=== PATIENT | male | born 1950 | race Caucasian/White ===

== ENCOUNTER → 2018-10-31 | Day surgery (SDC) | payer OTHER ==
[2018-10-29 09:08] VITALS: BMI 33.9
[~2018-10-31] MED LIST: KETAMINE 10 MG/ML 20 ML VIAL ONE; LACTATED RINGERS 1,000 ML IV SCH; LIDOCAINE 1% 20 ML VIAL (10MG/ML) FOR IV START INTRADERMA ONE; LIDOCAINE 1% INJ 10MG/ML (20 ML MDV) ONE; PROPOFOL 10 MG/ML 20 ML VIAL IV ONE
[2018-10-31 10:35] VITALS: TEMP 98.8
--- NOTE | 2018-10-31 10:57 | P.GSHP ---
History of Present Illness H&P Date: 10/31/18 Chief Complaint: Abdominal pain, screening Patient here today for upper and lower endoscopy. Patient having complaints of epigastric and right upper quadrant abdominal pain. History of previous cholecystectomy. No bowel related complaints. Also having some lower abdominal pain at times. History of previous sigmoid resection for diverticulitis. No history of polyps. Thinks his mother may have had colon cancer. Past Medical History Past Medical History: Asthma, COPD, Hyperlipidemia, Osteoarthritis (OA), Prostate Disorder Additional Past Medical History / Comment(s): kidney stones, colitis, History of Any Multi-Drug Resistant Organisms: None Reported Past Surgical History: Adenoidectomy, Appendectomy, Bowel Resection, Cholecystectomy, Tonsillectomy Additional Past Surgical History / Comment(s): colon resection, rib resection bilateral. COLONOSCOPY, EGD, BILAT CATARACT SX Past Anesthesia/Blood Transfusion Reactions: No Reported Reaction Smoking Status: Former smoker - Past Family History Mother Family Medical History: Cancer Additional Family Medical History / Comment(s): Grandfather had Cardiac issues and colon cancer. Grandmother had cardiac issues. Medications and Allergies Home Medications Medication Instructions Recorded Confirmed Type Allopurinol [Zyloprim] 100 mg PO DAILY 04/29/15 10/29/18 History Atorvastatin [Lipitor] 40 mg PO HS 10/29/18 10/29/18 History FLUoxetine HCL 40 mg PO DAILY 10/29/18 10/29/18 History Finasteride [Proscar] 5 mg PO DAILY 10/29/18 10/29/18 History L.acidoph,Paracasei, B.lactis 1 each PO DAILY 10/29/18 10/29/18 History [Probiotic] traZODone HCL 300 mg PO HS 10/29/18 10/29/18 History Allergies Allergy/AdvReac Type Severity Reaction Status Date / Time Iodinated Contrast- Oral and Allergy Unknown Verified 04/29/15 19:23 IV Dye [Iodinated Contrast Media - IV Dye] morphine AdvReac causes Verified 04/29/15 19:23 vitals to drop Surgical - Exam Vital Signs Temp Pulse Resp BP Pulse Ox 98.8 F 88 18 128/83 94 L 10/31/18 10:33 10/31/18 10:33 10/31/18 10:33 10/31/18 10:33 10/31/18 10:33 Physical exam: General: Well-developed, well-nourished HEENT: Normocephalic, sclerae nonicteric Abdomen: Nontender, nondistended Extremities: No edema Neuro: Alert and oriented Assessment and Plan (1) Colon cancer screening Narrative/Plan: Will proceed with upper and lower endoscopy at this time Current Visit: Yes Status: Acute Code(s): Z12.11 - ENCOUNTER FOR SCREENING FOR MALIGNANT NEOPLASM OF COLON SNOMED Code(s): 820876150
--- NOTE | 2018-10-31 11:15 | P.PCN ---
Date of Procedure: 10/31/18 Procedure(s) Performed: PREOPERATIVE DIAGNOSIS: Epigastric and right upper quadrant abdominal pain, screening POSTOPERATIVE DIAGNOSIS: Mild gastritis, transverse colon polyp, diverticulosis PROCEDURE: 1. EGD with biopsy 2. Colonoscopy with snare polypectomy ANESTHESIA: MAC SURGEON: Primitivo Valentine M.D. SPECIMENS: Antrum, polyp ENDOSCOPIC PROCEDURE: The patient was on the endoscopy table in the left decubitus position. The Olympus gastroscope was inserted into the oropharynx and passed under direct visualization to the region of the third portion of the duodenum. From that point the scope was slowly withdrawn inspecting all surfaces carefully. There were no neoplastic inflammatory or polypoid lesions throughout the duodenum. The pylorus was widely patent. The stomach was carefully inspected. There was mild gastritis present. A biopsy of the antrum took place to rule out H. pylori. Retroflexion revealed a normal hiatus. The esophagus was then carefully examined. There were no neoplastic inflammatory or polypoid lesions throughout the visualized esophagus. The patient was kept on the endoscopy table in the left decubitus position. The Olympus colonoscope was inserted into the anus and passed under direct visualization to the base of the cecum. The appendiceal orifice was visualized. From that point the scope was slowly withdrawn inspecting all surfaces carefully. There were no neoplastic inflammatory or polypoid lesions throughout the cecum and ascending colon. In the transverse colon a small polyp was identified and removed using the snare with cautery technique. The remainder of the transverse descending and rectum appeared normal. The previous colorectal anastomosis was widely patent. There was still mild scattered diverticulum seen scattered throughout the colon. Digital rectal examination was normal. The patient was taken to the recovery room in stable condition per anesthesia guidelines. RECOMMENDATIONS: Await biopsy results. Tentatively plan follow-up colonoscopy 5 years.
[2018-10-31 11:34] VITALS: BP 118/74; PULSE 78; RESP 17
== END ==
LOC: ORWHC2ENDO 09:53
PROVIDERS: ATTEND Surgery
DX: Z12.11 Encounter for screening for malignant neoplasm of colon (principal); K29.50 Unspecified chronic gastritis without bleeding; D12.3 Benign neoplasm of transverse colon; K57.30 Diverticulosis of large intestine without perforation or abscess without bleeding; Z80.0 Family history of malignant neoplasm of digestive organs; Z90.49 Acquired absence of other specified parts of digestive tract; E78.5 Hyperlipidemia, unspecified; M19.90 Unspecified osteoarthritis, unspecified site; M10.9 Gout, unspecified; N42.9 Disorder of prostate, unspecified; Z87.442 Personal history of urinary calculi; Z87.891 Personal history of nicotine dependence; Z79.899 Other long term (current) drug therapy; Z88.5 Allergy status to narcotic agent; Z91.041 Radiographic dye allergy status; J44.9 Chronic obstructive pulmonary disease, unspecified; F39 Unspecified mood [affective] disorder
CPT/HCPCS: 88305; 45385; 43239; J2001; J2704

== ENCOUNTER → 2020-04-11 | Outpatient (CLI) | payer OTHER ==
--- NOTE | 2020-04-11 14:37 | CT ---
EXAMINATION TYPE: CT abdomen pelvis wo/w con DATE OF EXAM: 04/11/2020 COMPARISON: 04/11/2020 HISTORY: Abdominal pain x [address] DLP: 3295.9 mGycm CONTRAST: CT scan of the abdomen and pelvis is performed with Oral Contrast and without and with IV Contrast, p atient injected with 100 mL of Isovue M300. FINDINGS: LUNG BASES-: No visible nodule. No infiltrate. LIVER/GB: The gallbladder is surgically absent. No space occupying hepatic lesion. Biliary tree is of normal caliber. PANCREAS: No inflammation. No distinct mass. SPLEEN: No splenic enlargement. No lesion seen. ADRENALS: No nodule. No thickening. KIDNEYS/BLADDER: No hydronephrosis. No nephrolithiasis. No distinct renal mass. Urinary bladder g rossly unremarkable. BOWEL: Wall thickening involving the descending colon extending to the hepatic flexure may reflect un derlying colitis. The remainder of the colon and small bowel are of normal caliber. The appendix is n ot clearly visualized. GENITAL ORGANS: No gross abnormality. LYMPH NODES: No greater than 1cm abdominal or pelvic lymph nodes are appreciated. AORTA: No significant abnormality. OSSEOUS STRUCTURES: No significant abnormality is seen. OTHER: No significant additional abnormality is seen. IMPRESSION: 1. Suspect colitis of the ascending colon up to the hepatic flexure. Correlate clinically.
== END | disposition home or self-care (01) ==
LOC: RADCTMAIN 12:22
PROVIDERS: ATTEND Nurse Practitioner Acute Care
DX: R10.84 Generalized abdominal pain (principal)
CPT/HCPCS: 82565; 84520; 74178; 36415; Q9967

== ENCOUNTER 2021-02-22 08:25 | Day surgery (SDC) | payer OTHER ==
[2021-02-20 15:04] VITALS: BMI 35.2
[2021-02-22] MEDS ORDERED: LIDOCAINE 1% (10MG/ML) FOR IV START INTRADERMA ONE (09:10)
[2021-02-22] MEDS ORDERED: LACTATED RINGERS 1,000 ML IV ONE (09:10)
[2021-02-22 09:16] VITALS: RESP 16; TEMP 98.4
[2021-02-22] MEDS ORDERED: PROPOFOL 10 MG/ML 20 ML VIAL IV ONE (09:44)
--- NOTE | 2021-02-22 09:54 | P.PCN ---
Date of Procedure: 02/22/21 Procedure(s) Performed: BRIEF HISTORY: Patient is a 70-year-old, pleasant, white male scheduled for an upper endoscopy as a part of evaluation of right upper quadrant abdominal pain for the last 2 years duration. PROCEDURE PERFORMED: Esophagogastroduodenoscopy with biopsy. PREOPERATIVE DIAGNOSIS: Right Upper quadrant abdominal pain of 2 years duration. IV sedation per anesthesia. PROCEDURE: After informed consent was obtained, the patient was brought into the endoscopy unit. IV sedation was administered by Anesthesia under continuous monitoring. Initially the Olympus GIF-140 video endoscope was inserted into the mouth. Esophagus intubated without any difficulty. It was gradually advanced into the stomach and duodenum and carefully examined. The bulb and the second part of the duodenum appeared normal. The scope at this time was withdrawn to the stomach, adequately insufflated with air, and upon careful examination, mucosa of the antrum, had mild gastritis and biopsies were done from this area. The body, cardia and the fundus appeared normal. The scope was then withdrawn into the esophagus. The GE junction was located at 39 cm from the incisors. Small sliding type hiatal hernia noted. The esophagus appeared normal. There were no erosions or ulcerations seen and the patient tolerated the procedure well. IMPRESSION: 1..Mild antral gastritis 2. Small sliding-type well hernia but no evidence of esophagitis RECOMMENDATIONS: The findings of this examination were discussed with the patient as well as his family. He was advised to follow with the biopsy results. He'll continue with Protonix 40 mg daily and he'll be seen in office in 6 weeks
[2021-02-22 10:17] VITALS: BP 124/77; PULSE 71
== END 2021-02-22 10:40 | disposition home or self-care (01) ==
LOC: ORWHC2ENDO 08:25
PROVIDERS: ATTEND Internal Medicine Gastroenterology
DX: K29.50 Unspecified chronic gastritis without bleeding (principal); K44.9 Diaphragmatic hernia without obstruction or gangrene; E78.5 Hyperlipidemia, unspecified; J44.9 Chronic obstructive pulmonary disease, unspecified; G47.33 Obstructive sleep apnea (adult) (pediatric); Z97.2 Presence of dental prosthetic device (complete) (partial); Z87.891 Personal history of nicotine dependence; Z87.442 Personal history of urinary calculi; K52.9 Noninfective gastroenteritis and colitis, unspecified; Z79.899 Other long term (current) drug therapy; Z88.5 Allergy status to narcotic agent; Z91.041 Radiographic dye allergy status
CPT/HCPCS: 88305; 43239; J2704

== ENCOUNTER 2021-04-20 12:00 | Emergency (ER) | payer OTHER ==
--- NOTE | 2021-04-20 12:29 | ED ---
Male Urogenital HPI - General Chief complaint: Urogenital Stated complaint: post cath urine retention Time Seen by Provider: 04/20/21 12:08 Source: patient Mode of arrival: ambulatory Limitations: no limitations - History of Present Illness Initial comments: 70-year-old male presents to emergency department with chief complaint of inability to urinate. Patient reports on March 27 the underwent prostate surgery at the [facility] in [place]. States yesterday he had the Yuen catheter removed and has not been able to urinate since. Reports a bit of dribbling but nothing more. He does report pain and tenderness over the bladder. He denies any back pain chest pain abdominal pain nausea vomiting or diarrhea. States she called his urologist who advised him to come to emergency department for Yuen catheter placement. - Related Data Home Medications Medication Instructions Recorded Confirmed allopurinoL [Zyloprim] 100 mg PO DAILY 04/29/15 04/20/21 FLUoxetine HCL 80 mg PO DAILY 10/29/18 04/20/21 Cetirizine HCl 10 mg PO DAILY 02/20/21 04/20/21 traZODone HCL 150 mg PO HS 04/20/21 04/20/21 Previous Rx's Medication Instructions Recorded Ciprofloxacin HCl [Cipro] 500 mg PO Q12HR #20 tablet 04/20/21 Allergies Allergy/AdvReac Type Severity Reaction Status Date / Time Iodinated Contrast Media Allergy Unknown Verified 04/20/21 14:19 [Iodinated Contrast Media - IV Dye] morphine AdvReac causes Verified 04/20/21 14:19 vitals to drop MRI Contrast Allergy Shaking Uncoded 04/20/21 12:05 Review of Systems ROS Statement: Those systems with pertinent positive or pertinent negative responses have been documented in the HPI. ROS Other: All systems not noted in ROS Statement are negative. Past Medical History Past Medical History: Asthma, Cancer, COPD, Hyperlipidemia, Osteoarthritis (OA), Prostate Disorder, Sleep Apnea/CPAP/BIPAP Additional Past Medical History / Comment(s): Hx kidney stones. Colitis. Cuurent Prostate cancer. 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 History of Any Multi-Drug Resistant Organisms: None Reported Past Surgical History: Adenoidectomy, Appendectomy, Bowel Resection, Cholecystectomy, Tonsillectomy Additional Past Surgical History / Comment(s): Bilateral rib resection, COLONOSCOPY, EGD, BILATERAL CATARACTS. Prostate surgery Past Anesthesia/Blood Transfusion Reactions: No Reported Reaction Past Psychological History: PTSD Smoking Status: Former smoker Past Alcohol Use History: None Reported Past Drug Use History: None Reported - Past Family History Sister(s) Family Medical History: Cancer Additional Family Medical History / Comment(s): Breast cancer. Mother Family Medical History: Cancer Additional Family Medical History / Comment(s): Grandfather had Cardiac issues and colon cancer. Grandmother had cardiac issues. General Exam Limitations: no limitations General appearance: alert, in no apparent distress, obese Head exam: Present: atraumatic, normocephalic, normal inspection Eye exam: Present: normal appearance, PERRL, EOMI Pupils: Present: normal accommodation ENT exam: Present: normal exam, normal oropharynx, mucous membranes moist Neck exam: Present: normal inspection, full ROM. Absent: tenderness Respiratory exam: Present: normal lung sounds bilaterally. Absent: respiratory distress Cardiovascular Exam: Present: regular rate, normal rhythm, normal heart sounds. Absent: systolic murmur GI/Abdominal exam: Present: soft, tenderness (Bladder tenderness). Absent: distended Extremities exam: Present: normal inspection, full ROM. Absent: tenderness Back exam: Present: normal inspection, full ROM. Absent: tenderness, CVA tenderness (R), CVA tenderness (L) Neurological exam: Present: alert, oriented X3 Psychiatric exam: Present: normal affect, normal mood Skin exam: Present: warm, dry, intact, normal color Course Vital Signs 04/20/21 12:05 Temperature 98.1 F Pulse Rate 90 Respiratory 16 Rate Blood Pressure 122/80 O2 Sat by Pulse 96 Oximetry Medical Decision Making - Medical Decision Making 70-year-old male presents to emergency department with chief complaint of inability to urinate. On physical examination, the incision sites are healing well. He does have tenderness over the bladder. Yuen catheter was placed but not able to drain significant amount of urine. Supposedly the patient had not urinated in approximately 24-hour period. Laboratory work shows a normal renal function. He does of urinary tract infection with positive nitrates elevated leukocyte esterase and white blood cells. Blood cells secondary to menstruation of the Yuen catheter. Patient will be started on Cipro Floxin. He was advised about the possible side effects of medication. He was advised to follow with his urologist. Urogram was obtained showed proper placement of the Uyen into the bladder. Strict return parameters were thoroughly discussed with patient is understanding and agreeable. Case discussed with Dr. Aldridge. - Lab Data Result diagrams: 04/20/21 13:50 Lab Results 04/20/21 04/20/21 Range/Units 13:50 13:50 Sodium 139 (137-145) mmol/L Potassium 4.3 (3.5-5.1) mmol/L Chloride 105 (98-107) mmol/L Carbon Dioxide 27 (22-30) mmol/L Anion Gap 7 mmol/L BUN 16 (9-20) mg/dL Creatinine 0.94 (0.66-1.25) mg/dL Est GFR (CKD-EPI)AfAm >90 (>60 ml/min/1.73 sqM) Est GFR (CKD-EPI)NonAf 81 (>60 ml/min/1.73 sqM) Glucose 108 H (74-99) mg/dL Calcium 9.4 (8.4-10.2) mg/dL Urine Color Yellow Urine Appearance Turbid (Clear) Urine pH 6.0 (5.0-8.0) Ur Specific [place] 1.021 (1.001-1.035) Urine Protein 2+ H (Negative) Urine Glucose (UA) Negative (Negative) Urine Ketones Negative (Negative) Urine Blood Large H (Negative) Urine Nitrite Positive (Negative) Urine Bilirubin Negative (Negative) Urine Urobilinogen <2.0 (<2.0) mg/dL Ur Leukocyte Esterase Large H (Negative) Urine RBC 168 H (0-5) /hpf Urine WBC >182 H (0-5) /hpf Urine WBC Clumps Few H (None) /hpf Ur Squamous Epith Cells 2 (0-4) /hpf Urine Bacteria Occasional H (None) /hpf Urine Mucus Many H (None) /hpf Disposition Clinical Impression: Urinary tract infection, Encounter for Yuen catheter replacement Disposition: HOME SELF-CARE Condition: Stable Instructions (If sedation given, give patient instructions): Urinary Tract Infection in Men (ED) Additional Instructions: Follow-up with urologist. Take prescribed medication as directed. Prescriptions: Ciprofloxacin HCl [Cipro] 500 mg PO Q12HR #20 tablet Is patient prescribed a controlled substance at d/c from ED?: No Referrals: [facility],Clinic [Primary Care Provider] - 1-2 days Time of Disposition: 15:15
[2021-04-20 14:21] LABS: Appearance,Urine Turbid (Clear); Bacteria,Urine Occasional /hpf; Bilirubin,Urine Negative (Negative); Blood,Urine Large (Negative); Color,Urine Yellow; Glucose,Urine (UA) Negative (Negative); Ketones,Urine Negative (Negative); Leukocyte Esterase,Urine Large (Negative); Mucus,Urine Many /hpf; Nitrite,Urine Positive (Negative); Protein,Urine 2+ (Negative); RBC,Urine 168 /hpf (0-5); Specific Gravity,Urine 1.021 (1.001-1.035); Squamous Epithelial Cell,Urine 2 /hpf (0-4); Urobilinogen,Urine <2.0 mg/dL (<2.0); WBC,Urine >182 /hpf (0-5)
[2021-04-20 14:25] LABS: African American GFR (CKD) >90 (>60 ml/min/1.73 sqM); Anion Gap 7 mmol/L; Blood Urea Nitrogen 16 mg/dL (9-20); Calcium 9.4 mg/dL (8.4-10.2); Carbon Dioxide 27 mmol/L (22-30); Chloride 105 mmol/L (98-107); Glucose 108 mg/dL (74-99); Non-African American GFR(CKD) 81 (>60 ml/min/1.73 sqM); Potassium 4.3 mmol/L (3.5-5.1); Sodium 139 mmol/L (137-145)
--- NOTE | 2021-04-20 14:29 | XR ---
EXAMINATION TYPE: XR pelvis AP view DATE OF EXAM: 04/20/2021 COMPARISON: None HISTORY: Recent prostatectomy. Placement of a Yuen catheter with low volume return. TECHNIQUE: Single AP pelvis FINDINGS: A cystectomy surgical clips are present. There is air collection over the symphysis pubis. This could be the balloon for the catheter. The catheter itself however is not identified. Case was d iscussed with Dr. Aldridge by Dr. Gandhi by telephone at approximately 1420 hours. Repeat the study wit h late injection of contrast to fill the catheter to detect placement is recommended. IMPRESSION: 1. Catheter not identified. A repeat study with contrast within the Yuen catheter is recommended
--- NOTE | 2021-04-20 15:10 | XR ---
EXAMINATION TYPE: XR pelvis AP view DATE OF EXAM: 04/20/2021 COMPARISON: Earlier exam HISTORY: Check catheter placement TECHNIQUE: AP pelvis FINDINGS: Following injection of contrast by the ER nurse, an image was obtained over the pelvis. Catheter is present within the midline with the tip apparently within urinary bladder. The urinary bl adder is decompressed. There is contrast extending adjacent to the catheter. Extravasation is not chelsi ntified. Postsurgical changes at the anastomosis may be present. IMPRESSION: 1. Urinary bladder appears to be decompressed with Yuen catheter within the urinary bladder. Extrav asation of contrast is not identified.
[2021-04-20 16:07] VITALS: BP 157/66; PULSE 75; RESP 18; TEMP 98.3
== END 2021-04-20 16:07 | disposition home or self-care (01) ==
LOC: EC 12:00
DX: N39.0 Urinary tract infection, site not specified (principal); J44.9 Chronic obstructive pulmonary disease, unspecified; Z46.6 Encounter for fitting and adjustment of urinary device; Z90.79 Acquired absence of other genital organ(s); Z87.891 Personal history of nicotine dependence; Z90.49 Acquired absence of other specified parts of digestive tract; Z91.041 Radiographic dye allergy status; Z88.5 Allergy status to narcotic agent
CPT/HCPCS: 36415; 80048; 81001; 87086; 72170; 99284; 51702; 51798; Q9967

== ENCOUNTER 2022-01-12 11:00 | Day surgery (SDC) | payer OTHER ==
[2022-01-10 14:52] VITALS: BMI 35.1
[~2022-01-12 11:00] MED LIST changes: -KETAMINE 10 MG/ML 20 ML VIAL ONE; -LIDOCAINE 1% 20 ML VIAL (10MG/ML) FOR IV START INTRADERMA ONE; -LIDOCAINE 1% INJ 10MG/ML (20 ML MDV) ONE; -PROPOFOL 10 MG/ML 20 ML VIAL IV ONE
[2022-01-12 12:23] VITALS: TEMP 97.7
[2022-01-12] MEDS ORDERED: PROPOFOL 10 MG/ML 20 ML VIAL IV ONE (12:56)
--- NOTE | 2022-01-12 13:13 | P.PCN ---
Date of Procedure: 01/12/22 Procedure(s) Performed: BRIEF HISTORY: Patient is a 71-year-old pleasant male scheduled for an elective colonoscopy as a part of evaluation of right-sided abdominal pain for the last several months duration. PROCEDURE PERFORMED: Colonoscopy. PREOPERATIVE DIAGNOSIS: Right-sided abdominal pain of several months. IV sedation per Anesthesia. PROCEDURE: After informed consent was obtained, the patient, was brought into the endoscopy unit. IV sedation was administered by Anesthesia under continuous monitoring. Digital rectal examination was normal. Initially the Olympus CF-160 flexible video colonoscope was then inserted in the rectum, gradually advanced into the cecum without any difficulty. Careful examination was performed as the scope was gradually being withdrawn. Ileocecal valve and the appendiceal orifice were visualized and appeared normal. Prep was fair.. There was some thick stool noted in the base of the cecum there was thoroughly irrigated. Mucosa of the cecum, ascending colon, transverse colon, descending colon, sigmoid colon, and rectum appeared normal. Scattered left-sided diverticulosis seen. Retroflexion was performed in the rectum and no lesions were seen. The patient tolerated the procedure well. IMPRESSION: Normal-appearing colon from rectum to cecum with no evidence of colorectal neoplasia . Scattered left sided diverticulosis. RECOMMENDATIONS: Findings of this examination were discussed with the patient as well as his family. He was advised to be on a high-fiber diet and take fiber supplements a regular basis. Recommend repeat screening colonoscopy in 10 years..
[2022-01-12 13:39] VITALS: BP 116/58; PULSE 70; RESP 16
== END 2022-01-12 14:13 | disposition home or self-care (01) ==
LOC: ORWHC2ENDO 11:00
PROVIDERS: ATTEND Internal Medicine Gastroenterology
DX: K57.30 Diverticulosis of large intestine without perforation or abscess without bleeding (principal); J44.9 Chronic obstructive pulmonary disease, unspecified; G47.33 Obstructive sleep apnea (adult) (pediatric); Z85.46 Personal history of malignant neoplasm of prostate; E66.01 Morbid (severe) obesity due to excess calories; Z79.899 Other long term (current) drug therapy; Z91.041 Radiographic dye allergy status; Z88.5 Allergy status to narcotic agent
CPT/HCPCS: 45378; J2704

== ENCOUNTER 2022-04-28 23:47 | Observation (INO) | payer OTHER ==
--- NOTE | 2022-04-28 23:51 | ED ---
Chest Pain HPI - General Stated Complaint: chest pain Time Seen by Provider: 04/28/22 23:51 - Related Data Home Medications Medication Instructions Recorded Confirmed Cetirizine HCl 5 mg PO DAILY 02/20/21 01/12/22 FLUoxetine HCL [PROzac] 40 mg PO DAILY 04/20/21 01/12/22 allopurinoL [Zyloprim] 300 mg PO DAILY 04/20/21 01/12/22 Solifenacin Succinate [Vesicare] 5 mg PO DAILY 01/10/22 01/12/22 traZODone HCL 150 mg PO HS 01/10/22 01/12/22 Allergies Allergy/AdvReac Type Severity Reaction Status Date / Time Iodinated Contrast Media Allergy Unknown Verified 04/28/22 23:53 [Iodinated Contrast Media - IV Dye] morphine AdvReac causes Verified 04/28/22 23:53 vitals to drop MRI Contrast Allergy Shaking Uncoded 04/28/22 23:53 Review of Systems ROS Statement: Those systems with pertinent positive or pertinent negative responses have been documented in the HPI. ROS Other: All systems not noted in ROS Statement are negative. EKG Findings - EKG Comments: EKG Findings:: EKG is sinus 83 MD 176 QRS 81 QTC 402 Past Medical History Past Medical History: Asthma, Cancer, COPD, Hyperlipidemia, Osteoarthritis (OA), Prostate Disorder, Sleep Apnea/CPAP/BIPAP Additional Past Medical History / Comment(s): Hx kidney stones. past hx. thoracic outlet syndrome, Colitis. hx. Prostate cancer. 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 pain @times, overactive bladder History of Any Multi-Drug Resistant Organisms: None Reported Past Surgical History: Adenoidectomy, Appendectomy, Bowel Resection, Cholecystectomy, Prostate Surgery, Tonsillectomy Additional Past Surgical History / Comment(s): Bilateral rib resection, COLONOSCOPY, EGD, BILATERAL CATARACTS. Prostatectomy Past Anesthesia/Blood Transfusion Reactions: No Reported Reaction Smoking Status: Former smoker - Past Family History Sister(s) Family Medical History: Cancer Additional Family Medical History / Comment(s): Breast cancer. Mother Family Medical History: Cancer Additional Family Medical History / Comment(s): Grandfather had Cardiac issues and colon cancer. Grandmother had cardiac issues. Course Vital Signs 04/28/22 23:50 Temperature 100 F H Pulse Rate 86 Respiratory 18 Rate Blood Pressure 128/76 O2 Sat by Pulse 94 L Oximetry Disposition Clinical Impression: Chest pain, Atypical chest pain, Fever, Pneumonia, COPD (chronic obstructive pulmonary disease) Disposition: ADMITTED IP TO THIS HOSP Condition: Good Is patient prescribed a controlled substance at d/c from ED?: No Referrals: [facility],Clinic [Primary Care Provider] - 1-2 days
[2022-04-29 00:05] LABS: Basophils % (A) 0 %; Eosinophils # (A) 0.2 k/uL (0-0.7); Eosinophils % (A) 2 %; HGB 13.2 gm/dL (13.0-17.5); Lymphocytes # (A) 1.1 k/uL (1.0-4.8); Lymphocytes % (A) 12 %; MCH 27.5 pg (25.0-35.0); MCHC 31.5 g/dL (31.0-37.0); MCV 87.3 fL (80.0-100.0); Mean Platelet Volume 6.7; Monocytes # (A) 0.6 k/uL (0-1.0); Monocytes % (A) 6 %; Neutrophils # (A) 6.9 k/uL (1.3-7.7); Neutrophils % (A) 78 %; Platelet Count 210 k/uL (150-450); RBC 4.81 m/uL (4.30-5.90); RDW 13.9 % (11.5-15.5); WBC 8.9 k/uL (3.8-10.6)
[2022-04-29 00:18] LABS: Albumin 4.1 g/dL (3.5-5.0); Calcium 8.9 mg/dL (8.4-10.2); INR 0.9 (<1.2); Partial Thromboplastin Time 24.1 sec (22.0-30.0); Potassium 4.2 mmol/L (3.5-5.1); Prothrombin Time 9.8 sec (9.0-12.0); Total Bilirubin 0.4 mg/dL (0.2-1.3); Total Protein 6.7 g/dL (6.3-8.2)
--- NOTE | 2022-04-29 00:30 | XR ---
EXAMINATION TYPE: XR chest 1V DATE OF EXAM: 04/29/2022 COMPARISON: 04/29/2015 HISTORY: Chest pain TECHNIQUE: FINDINGS: There is elevated left diaphragm and blunting left costophrenic angle. No heart failure. He art size is normal. No pleural effusion. There are chest leads. IMPRESSION: There is pleural diaphragmatic scarring lateral left lung base with elevated diaphragm. N o acute lung disease. No change compared to old exam. Normal heart.
[2022-04-29] MEDS ORDERED: AZITHROMYCIN 500 MG in SODIUM CHLORIDE 0.9% 250 ML IVPB STA (01:04)
[2022-04-29] MEDS ORDERED: ALBUTEROL NEBULIZED 2.5 MG/3 ML INHALATION PRN (01:04)
[2022-04-29] MEDS ORDERED: PNEUMONIA PROTOCOL UTILIZED 1 EACH MISC PO PRN (01:04)
[2022-04-29] MEDS ORDERED: KETOROLAC 15 MG/ML 1 ML VIAL IVP STA (02:07)
[2022-04-29] MEDS ORDERED: ACETAMINOPHEN TAB 325 MG TAB PO PRN (02:08)
[2022-04-29] MEDS ORDERED: ALBUTEROL HFA INHALER INHALATION PRN (05:53)
[2022-04-29] MEDS ORDERED: HYDROmorphone 1 MG/ML 1 ML SYRINGE IVP STA (06:17)
[2022-04-29] MEDS ORDERED: HYDROmorphone 1 MG/ML 1 ML SYRINGE IVP PRN (06:17)
[2022-04-29] MEDS ORDERED: FAMOTIDINE 20 MG/2 ML VIAL IV STA (12:41)
[2022-04-29] MEDS ORDERED: methylPREDNISolone SOD SUCCI 125 MG/2 ML VIAL IV STA (12:41)
[2022-04-29] MEDS ORDERED: diphenhydrAMINE 50 MG/ML 1 ML VIAL IVP STA (12:41)
[2022-04-29] MEDS ORDERED: traZODone HCL 100 MG TAB PO PRN (12:49)
--- NOTE | 2022-04-29 12:54 | P.HPIM ---
History of Present Illness H&P Date: 04/29/22 Chief Complaint: Back pain Patient is a 71-year-old male with a past medical history of kidney stones, colitis, diverticulitis, hypertension who presents to the ED with sharp back pain between his scapula. Patient states that the first episode occurred when he was on his lawnmower yesterday. He states that the pain subsided on its own. He then had a few more episodes similar to this. Patient did not want to come into the hospital however his son convinced him to go so patient came in today. Patient was given IV Dilaudid in the ED which helped to relieve his pain. When I was talking to the patient he believes that the pain is coming back again. In the ED patient's labs are unremarkable. Patient did have a fever. He was found to be positive for COVID-19. Chest x-ray negative for acute process. Review of Systems 10 ROS reviewed and are negative except as noted in HPI Past Medical History Past Medical History: Asthma, Cancer, COPD, Hyperlipidemia, Osteoarthritis (OA), Prostate Disorder, Sleep Apnea/CPAP/BIPAP Additional Past Medical History / Comment(s): Hx kidney stones. past hx. thoracic outlet syndrome, Colitis. hx. Prostate cancer. 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 pain @times, overactive bladder History of Any Multi-Drug Resistant Organisms: None Reported Past Surgical History: Adenoidectomy, Appendectomy, Bowel Resection, Cholecystectomy, Prostate Surgery, Tonsillectomy Additional Past Surgical History / Comment(s): Bilateral rib resection, COLONOSCOPY, EGD, BILATERAL CATARACTS. Prostatectomy Past Anesthesia/Blood Transfusion Reactions: No Reported Reaction Smoking Status: Former smoker - Past Family History Sister(s) Family Medical History: Cancer Additional Family Medical History / Comment(s): Breast cancer. Mother Family Medical History: Cancer Additional Family Medical History / Comment(s): Grandfather had Cardiac issues and colon cancer. Grandmother had cardiac issues. Medications and Allergies Home Medications Medication Instructions Recorded Confirmed Type Cetirizine HCl 5 mg PO DAILY 02/20/21 04/29/22 History FLUoxetine HCL [PROzac] 40 mg PO DAILY 04/20/21 04/29/22 History allopurinoL [Zyloprim] 300 mg PO DAILY 04/20/21 04/29/22 History Solifenacin Succinate [Vesicare] 5 mg PO DAILY 01/10/22 04/29/22 History Carboxymethylcellulose Sodium 2 drop BOTH EYES QID PRN 04/29/22 04/29/22 History [Refresh Tears] traZODone HCL [Desyrel] 100 - 300 mg PO HS PRN 04/29/22 04/29/22 History Allergies Allergy/AdvReac Type Severity Reaction Status Date / Time Iodinated Contrast Media Allergy Unknown Verified 04/29/22 12:08 [Iodinated Contrast Media - IV Dye] morphine AdvReac causes Verified 04/29/22 12:08 vitals to drop MRI Contrast Allergy Shaking Uncoded 04/28/22 23:53 Physical Exam Osteopathic Statement: *. No significant issues noted on an osteopathic structural exam other than those noted in the History and Physical/Consult. Vitals: Vital Signs Temp Pulse Resp BP Pulse Ox 04/29/22 10:00 98.0 F 63 16 120/62 99 04/29/22 06:24 98.9 F 67 18 132/53 94 L 04/29/22 02:40 100 F H 04/29/22 01:13 100.4 F H 73 16 127/66 94 L 04/28/22 23:50 100 F H 86 18 128/76 94 L Intake and Output 04/28/22 04/29/22 04/29/22 22:59 06:59 14:59 Other: Weight 111.13 kg General: [Alert and oriented, well nourished, no acute distress]. Eye: [PERRL, EOMI, normal conjunctiva]. HENT: [Normocephalic, clear tympanic membranes, normal hearing, moist oral mucosa, no scleral icterus, no sinus tenderness]. Neck: [Supple, non-tender, no carotid bruits, no JVD, no lymphadenopathy]. Lungs: [Clear to auscultation and percussion, non-labored respiration]. Heart: [Normal rate, regular rhythm, no murmur, gallop or edema]. Abdomen: [Soft, non-tender, non-distended, normal bowel sounds, no masses]. Musculoskeletal: [Normal range of motion and strength, no tenderness or swelling]. Skin: [Skin is warm, dry and pink, no rashes or lesions]. Neurologic: [Awake, alert, and oriented X3, CN II-XII intact]. Psychiatric: [Cooperative, appropriate mood and affect]. Results CBC & Chem 7: 04/28/22 23:53 04/28/22 23:53 Labs: Abnormal Lab Results - Last 24 Hours (Table) 04/28/22 04/29/22 Range/Units 23:53 01:00 Glucose 106 H (74-99) mg/dL Coronavirus (PCR) Detected A (Not Detectd) Assessment and Plan Assessment: Sharp chest pain between scapula -We'll check CTA chest to rule out aortic dissection and pulmonary embolism -Patient will need ALLERGY prep prior to the scan due to iodine ALLERGY -Tylenol for pain COVID-19, asymptomatic -No need to treat -Patient only describes mild dyspnea with exertion -He is satting well on room air. Chest x-ray negative for any signs of pneumonia -Resume antibiotics for now. If pro-calcitonin negative we'll discontinue antibiotics Gout -Resume allopurinol Anxiety and depression -Resume fluoxetine CODE STATUS:full code DPOA: son DVT prophylaxis: mechanical Discussed with: Patient, ER, rn Anticipated length of stay < than [address]: home A total of 50 minutes was spent on the care of this complex patient more than 50% of the time was spent in counseling and care coordination.
--- NOTE | 2022-04-29 15:30 | CT ---
EXAMINATION TYPE: CT chest angio for PE CT DLP: 691.4 mGycm, Automated exposure control for dose reduction was used. DATE OF EXAM: 04/29/2022 3:09 PM COMPARISON: Chest radiograph from same day. CT abdomen pelvis 04/11/2020. CLINICAL INDICATION:Male, 71 years old with history of sharp chest pain between scapula. COVID positi ve; sharp chest and back pain TECHNIQUE/CONTRAST: CTA scan of the thorax is performed with IV Contrast, patient injected with 88 mL of Isovue 370, pulm onary embolism protocol. MIP images are created and reviewed. FINDINGS: Pulmonary Artery: There is no evidence for a central filling defect within the pulmonary vasculature to suggest acute pulmonary embolism. Limited evaluation of the segmental and subsegmental branches se condary to bolus timing. The pulmonary artery is of normal size. Lungs/Pleura: No evidence of focal consolidation, pleural effusion or pneumothorax. There is an eleva willian left diaphragm. Scattered streaky atelectasis/scarring in the lung base on the left. Right middle lobe 4 mm pulmonary nodule. Airway: Large airways are patent. Heart: The heart is mildly enlarged for size. There is mild coronary artery atherosclerosis. Vasculature: No evidence of aortic aneurysm. Mediastinum: No gross evidence of adenopathy. Musculoskeletal: No acute osseous abnormalities, mild multilevel disc degeneration changes. Soft Tissues: Unremarkable. Lower neck: No significant findings. Upper Abdomen: Diffuse low-attenuation liver parenchyma. Scattered clonic diverticula. Bilateral skylar l cysts. IMPRESSION: 1. No evidence of central pulmonary embolism. Limited evaluation of the segmental and subsegmental br anches. 2. Right middle 4 mm pulmonary nodule. Consider comparison with priors for stability. If there are no priors consider follow-up in one year. 3. Colonic diverticulosis 4. Hepatic steatosis.
[2022-04-29] MEDS: HYDROmorphone 0.5 MG/0.5 ML SYRINGE IM PRN (19:05)
[2022-04-30] MEDS: HYDROmorphone 0.5 MG/0.5 ML SYRINGE IM PRN ×2 (01:24→07:57)
[2022-04-30] MEDS ORDERED: AZITHROMYCIN 500 MG TAB PO SCH (09:00)
[2022-04-30] MEDS ORDERED: allopurinoL 300 MG TAB PO SCH (09:00)
[2022-04-30] MEDS ORDERED: TROSPIUM CHLORIDE 20 MG TABLET PO SCH (09:00)
[2022-04-30] MEDS ORDERED: FLUoxetine HCL 20 MG CAP PO SCH (09:00)
[2022-04-30] MEDS ORDERED: LORATADINE 10 MG TAB PO SCH (09:00)
[2022-04-30] MEDS ORDERED: HYDROmorphone 0.5 MG/0.5 ML SYRINGE IVP PRN (09:50)
--- NOTE | 2022-04-30 10:51 | P.DS ---
Providers Date of admission: 04/29/22 01:04 Expected date of discharge: 04/30/22 Attending physician: Fabiola Bartlett MD Primary care physician: [facility] Hospital Course: Discharge Diagnosis: Sharp chest pain between scapula COVID-19 asymptomatic Gout Anxiety and depression Hospital Course: Patient is a 71-year-old male with a past medical history of kidney stones, colitis, diverticulitis, hypertension who presents to the ED with sharp back pain between his scapula. Patient states that the first episode occurred when he was on his lawnmower yesterday. He states that the pain subsided on its own. He then had a few more episodes similar to this. Patient did not want to come into the hospital however his son convinced him to go so patient came in today. Patient was given IV Dilaudid in the ED which helped to relieve his pain. In the ED patient's labs are unremarkable. Patient did have a fever. He was found to be positive for COVID-19. Chest x-ray negative for acute process. Patient had a CTA chest that was negative for pulmonary embolism or aortic dissection or pneumonia. Patient's pro-calcitonin was within normal limits. Pneumonia ruled out so antibiotics will be discontinued. At the time of discharge patient was showering independently. He only complained of diarrhea. I did tell patient that it could be due to COVID-19. Patient was deemed stable for discharge. Patient is amenable to the plan. Patient seen and examined at bedside.[] Vital signs reviewed and stable. General: [non toxic], [no distress], [appears at stated age] Derm: [warm], [dry] Head: [atraumatic], [normocephalic], [symmetric] Eyes: [EOMI], [no lid lag], [anicteric sclera] Mouth: [no lip lesion], [mucus membranes moist] Cardiovascular: [S1S2 reg], [no murmur], [positive posterior tibial pulse bilateral], Lungs: [CTA bilateral], [no rhonchi, no rales] , [no accessory muscle use] Abdominal: [soft], [ nontender to palpation], [no guarding], [no appreciable organomegaly] Ext: [no gross muscle atrophy], [no edema], [no contractures] Neuro: [ CN II-XI grossly intact], [no focal neuro deficits] Psych: [Alert], [oriented], [appropriate affect] A total of [33] minutes of time were spent preparing this complex discharge summary . Patient Condition at Discharge: Good Plan - Discharge Summary New Discharge Prescriptions: Continue Cetirizine HCl 5 mg PO DAILY allopurinoL [Zyloprim] 300 mg PO DAILY traZODone HCL [Desyrel] 100 - 300 mg PO HS PRN PRN Reason: SLEEP FLUoxetine HCL [PROzac] 40 mg PO DAILY Solifenacin Succinate [Vesicare] 5 mg PO DAILY Carboxymethylcellulose Sodium [Refresh Tears] 2 drop BOTH EYES QID PRN PRN Reason: DRY EYES Discharge Medication List Cetirizine HCl 5 mg PO DAILY 02/20/21 [History] FLUoxetine HCL [PROzac] 40 mg PO DAILY 04/20/21 [History] allopurinoL [Zyloprim] 300 mg PO DAILY 04/20/21 [History] Solifenacin Succinate [Vesicare] 5 mg PO DAILY 01/10/22 [History] Carboxymethylcellulose Sodium [Refresh Tears] 2 drop BOTH EYES QID PRN 04/29/22 [History] traZODone HCL [Desyrel] 100 - 300 mg PO HS PRN 04/29/22 [History] Follow up Appointment(s)/Referral(s): [facility],Clinic [Primary Care Provider] - 1-2 days Discharge Disposition: HOME SELF-CARE
[2022-04-30 11:03] VITALS: BP 122/70; PULSE 72; RESP 20; TEMP 98.6
== END 2022-04-30 12:21 | disposition home or self-care (01) ==
LOC: EC 23:47 → 6NMEDSUR 04-29 01:04 → 4SSUR 04-29 19:06
PROVIDERS: ADMIT Internal Medicine; ATTEND Internal Medicine
DX: R07.89 Other chest pain (principal); U07.1 COVID-19; E78.5 Hyperlipidemia, unspecified; M10.9 Gout, unspecified; F32.A Depression, unspecified; F41.9 Anxiety disorder, unspecified; G47.30 Sleep apnea, unspecified; J44.9 Chronic obstructive pulmonary disease, unspecified; I10 Essential (primary) hypertension; I25.10 Atherosclerotic heart disease of native coronary artery without angina pectoris; K57.30 Diverticulosis of large intestine without perforation or abscess without bleeding; K76.0 Fatty (change of) liver, not elsewhere classified; R91.1 Solitary pulmonary nodule; Z79.899 Other long term (current) drug therapy; Z91.041 Radiographic dye allergy status; Z85.46 Personal history of malignant neoplasm of prostate; Z85.820 Personal history of malignant melanoma of skin; Z90.49 Acquired absence of other specified parts of digestive tract; Z87.891 Personal history of nicotine dependence; Z80.3 Family history of malignant neoplasm of breast; Z80.0 Family history of malignant neoplasm of digestive organs; Z82.49 Family history of ischemic heart disease and other diseases of the circulatory system
CPT/HCPCS: 96366; 96372 ×2; 96365; 96367; 96375; 99285; 36415; 93005; 85379; 80053; 83735; 84484; 85025; 85610; 85730; 84145; 87635; 71045; 71275; G0378 ×2; J1200; J2930; J0456; J0696 ×2; J1170 ×3; J1885; Q9967

== ENCOUNTER 2022-05-30 17:17 | Emergency (ER) | payer OTHER ==
[2022-05-30 18:40] VITALS: BP 120/77; PULSE 97; RESP 16; TEMP 98.5
--- NOTE | 2022-05-30 20:03 | ED ---
Abdominal Pain HPI - General Chief Complaint: Abdominal Pain Stated Complaint: intestinal blockage Time Seen by Provider: 05/30/22 19:13 Source: patient, RN notes reviewed Mode of arrival: ambulatory Limitations: no limitations - History of Present Illness Initial Comments: This is a pleasant 71-year-old male with a history of previous partial colectomy with colostomy and reversal. This was done several years ago by Dr. Jimenes. Patient states for the last 2 weeks he has had problems with bowel movement. He states he has not had a bowel movement in 2 weeks. He is getting some abdominal discomfort. However, he states he has had no vomiting or nausea. Patient describing only some cramping pain in the lower abdomen. No chest pain or shortness of breath. No fever. No problems with urination. Patient has been trying [id number] constipation remedies with no improvement No headache, no fever or chills, no changes in vision or hearing, no sore throat or difficulty with speech, no neck pain, no chest pain or shortness of breath,, no nausea or vomiting, no changes in urination or bowel movements, no numbness or tingling, no extremity pain, no skin rashes or lesions. Past medical, surgical, social, and family history reviewed. MD Complaint: abdominal pain - Related Data Home Medications Medication Instructions Recorded Confirmed Cetirizine HCl 5 mg PO DAILY 02/20/21 04/29/22 FLUoxetine HCL [PROzac] 40 mg PO DAILY 04/20/21 04/29/22 allopurinoL [Zyloprim] 300 mg PO DAILY 04/20/21 04/29/22 Solifenacin Succinate [Vesicare] 5 mg PO DAILY 01/10/22 04/29/22 Carboxymethylcellulose Sodium 2 drop BOTH EYES QID PRN 04/29/22 04/29/22 [Refresh Tears] traZODone HCL [Desyrel] 100 - 300 mg PO HS PRN 04/29/22 04/29/22 Allergies Allergy/AdvReac Type Severity Reaction Status Date / Time Iodinated Contrast Media Allergy Unknown Verified 05/30/22 18:40 [Iodinated Contrast Media - IV Dye] morphine AdvReac causes Verified 05/30/22 18:40 vitals to drop MRI Contrast Allergy Shaking Uncoded 05/30/22 18:40 Review of Systems ROS Statement: Those systems with pertinent positive or pertinent negative responses have been documented in the HPI. ROS Other: All systems not noted in ROS Statement are negative. Past Medical History Past Medical History: Asthma, Cancer, COPD, Hyperlipidemia, Osteoarthritis (OA), Prostate Disorder, Sleep Apnea/CPAP/BIPAP Additional Past Medical History / Comment(s): Hx kidney stones. past hx. thoracic outlet syndrome, Colitis. hx. Prostate cancer. 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 pain @times, overactive bladder History of Any Multi-Drug Resistant Organisms: None Reported Past Surgical History: Adenoidectomy, Appendectomy, Bowel Resection, Cholec ystectomy, Prostate Surgery, Tonsillectomy Additional Past Surgical History / Comment(s): Bilateral rib resection, COLONOSCOPY, EGD, BILATERAL CATARACTS. Prostatectomy Past Anesthesia/Blood Transfusion Reactions: No Reported Reaction Past Psychological History: PTSD Smoking Status: Former smoker Past Alcohol Use History: None Reported Past Drug Use History: None Reported - Past Family History Sister(s) Family Medical History: Cancer Additional Family Medical History / Comment(s): Breast cancer. Mother Family Medical History: Cancer Additional Family Medical History / Comment(s): Grandfather had Cardiac issues and colon cancer. Grandmother had cardiac issues. General Exam - General Exam Comments Initial Comments: Vital signs stable, patient afebrile. Patient does not appear to be ill or toxic. She had outpatient x-rays of his abdomen at [facility] and was sent in for possible bowel obstruction. Limitations: no limitations General appearance: alert, in no apparent distress, obese Head exam: Present: atraumatic, normocephalic, normal inspection Eye exam: Present: normal appearance, PERRL, EOMI. Absent: scleral icterus, conjunctival injection, periorbital swelling ENT exam: Present: normal exam, mucous membranes moist Neck exam: Present: normal inspection. Absent: tenderness, meningismus, lymphadenopathy Respiratory exam: Present: normal lung sounds bilaterally. Absent: respiratory distress, wheezes, rales, rhonchi, stridor Cardiovascular Exam: Present: regular rate, normal rhythm, normal heart sounds. Absent: systolic murmur, diastolic murmur, rubs, gallop, clicks GI/Abdominal exam: Present: soft, normal bowel sounds. Absent: distended, tenderness, guarding, rebound, rigid Extremities exam: Present: normal inspection, full ROM, normal capillary refill. Absent: tenderness, pedal edema, joint swelling, calf tenderness Back exam: Present: normal inspection Neurological exam: Present: alert, oriented X3, CN II-XII intact Psychiatric exam: Present: normal affect, normal mood Skin exam: Present: warm, dry, intact, normal color. Absent: rash Course Vital Signs 05/30/22 18:37 Temperature 98.5 F Pulse Rate 97 Respiratory 16 Rate Blood Pressure 120/77 O2 Sat by Pulse 96 Oximetry - Reevaluation(s) Reevaluation #1: 05/30/22 22:20 Medical record is reviewed Patient unchanged. Abdomen is really benign other than having some minimal palpable distention Patient is informed of results and questions answered Patient in no distress Medical Decision Making - Medical Decision Making Patient computed tomography scan shows no evidence of obstruction. No other acute findings. Previous surgical pattern noted by radiology. I did review this film myself. I believe the patient does have evidence of increased stool Birden. However there is no evidence of fecal impaction. Discussed treatment options with the patient. We will try an enema and then we will have the patient use [id number] MiraLAX for the next 5 days. He is to follow-up with the [facility] medical clinic in detail. Patient was told to return to the ER for any signs or symptoms worsen. Told to return immediately if any other problems arise. All questions answered. Treatment plan discussed. Patient in agreement Every effort has been made to ensure accuracy of this dictation. However, due to the limitations of electronic medical records and dictation devices, errors in charting still occur. Gold Stamper Dr. Celis - Lab Data Result diagrams: 05/30/22 20:48 05/30/22 20:48 Lab Results 05/30/22 05/30/22 05/30/22 Range/Units 20:48 20:48 20:48 WBC 9.5 (3.8-10.6) k/uL RBC 5.36 (4.30-5.90) m/uL Hgb 14.8 (13.0-17.5) gm/dL Hct 47.0 (39.0-53.0) % MCV 87.7 (80.0-100.0) fL MCH 27.5 (25.0-35.0) pg MCHC 31.4 (31.0-37.0) g/dL RDW 14.4 (11.5-15.5) % Plt Count 239 (150-450) k/uL MPV 6.9 Neutrophils % 64 % Lymphocytes % 26 % Monocytes % 5 % Eosinophils % 2 % Basophils % 1 % Neutrophils # 6.1 (1.3-7.7) k/uL Lymphocytes # 2.5 (1.0-4.8) k/uL Monocytes # 0.5 (0-1.0) k/uL Eosinophils # 0.2 (0-0.7) k/uL Basophils # 0.1 (0-0.2) k/uL PT 10.6 (9.0-12.0) sec INR 1.0 (<1.2) Sodium 137 (137-145) mmol/L Potassium 4.2 (3.5-5.1) mmol/L Chloride 101 (98-107) mmol/L Carbon Dioxide 22 (22-30) mmol/L Anion Gap 14 mmol/L BUN 19 (9-20) mg/dL Creatinine 1.16 (0.66-1.25) mg/dL Est GFR (CKD-EPI)AfAm 72 (>60 ml/min/1.73 sqM) Est GFR (CKD-EPI)NonAf 63 (>60 ml/min/1.73 sqM) Glucose 111 H (74-99) mg/dL Plasma Lactic Acid Jorge Alberto (0.7-2.0) mmol/L Calcium 9.5 (8.4-10.2) mg/dL Total Bilirubin 0.4 (0.2-1.3) mg/dL AST 21 (17-59) U/L ALT 18 (4-49) U/L Alkaline Phosphatase 104 (38-126) U/L Troponin I (0.000-0.034) ng/mL Total Protein 7.5 (6.3-8.2) g/dL Albumin 4.7 (3.5-5.0) g/dL Lipase 100 (23-300) U/L 05/30/22 05/30/22 Range/Units 20:48 20:48 WBC (3.8-10.6) k/uL RBC (4.30-5.90) m/uL Hgb (13.0-17.5) gm/dL Hct (39.0-53.0) % MCV (80.0-100.0) fL MCH (25.0-35.0) pg MCHC (31.0-37.0) g/dL RDW (11.5-15.5) % Plt Count (150-450) k/uL MPV Neutrophils % % Lymphocytes % % Monocytes % % Eosinophils % % Basophils % % Neutrophils # (1.3-7.7) k/uL Lymphocytes # (1.0-4.8) k/uL Monocytes # (0-1.0) k/uL Eosinophils # (0-0.7) k/uL Basophils # (0-0.2) k/uL PT (9.0-12.0) sec INR (<1.2) Sodium (137-145) mmol/L Potassium (3.5-5.1) mmol/L Chloride (98-107) mmol/L Carbon Dioxide (22-30) mmol/L Anion Gap mmol/L BUN (9-20) mg/dL Creatinine (0.66-1.25) mg/dL Est GFR (CKD-EPI)AfAm (>60 ml/min/1.73 sqM) Est GFR (CKD-EPI)NonAf (>60 ml/min/1.73 sqM) Glucose (74-99) mg/dL Plasma Lactic Acid Jorge Alberto 1.4 (0.7-2.0) mmol/L Calcium (8.4-10.2) mg/dL Total Bilirubin (0.2-1.3) mg/dL AST (17-59) U/L ALT (4-49) U/L Alkaline Phosphatase (38-126) U/L Troponin I <0.012 (0.000-0.034) ng/mL Total Protein (6.3-8.2) g/dL Albumin (3.5-5.0) g/dL Lipase (23-300) U/L - EKG Data EKG Comments: EKG done at 2042 and reviewed with ED attending physician reveals a sinus rhythm with a rate of 81. Nonspecific T wave abnormality. Normal axis. Normal QRS morphology otherwise. No evidence of acute changes. Disposition Clinical Impression: Constipation, Abdominal cramping Disposition: HOME SELF-CARE Condition: Good Instructions (If sedation given, give patient instructions): Constipation (ED) Additional Instructions: Take MiraLAX once a day for the next 5 days and follow-up with the [place] medical clinic. Also add in a daily fiber supplement such as Metamucil, Benefiber, or FiberCon. Follow-up with your regular physician as directed. Return to the ER immediately if any symptoms worsen, new symptoms arise, or any other problems develop. Is patient prescribed a controlled substance at d/c from ED?: No Referrals: [facility],Clinic [Primary Care Provider] - 1-2 days Time of Disposition: 22:23
--- NOTE | 2022-05-30 20:20 | XR ---
EXAMINATION TYPE: XR chest 2V DATE OF EXAM: 05/30/2022 COMPARISON: 04/29/2022 HISTORY: Abdominal pain TECHNIQUE: 2 views FINDINGS: There is blunting of costophrenic angle. Heart and mediastinum are normal. Lungs are clear of infiltrate. Right lung is clear. IMPRESSION: There is some pleural diaphragmatic scarring at the lateral lung base and slight elevated left diaphragm. No change compared to old exam. No acute lung disease.
--- NOTE | 2022-05-30 20:22 | XR ---
EXAMINATION TYPE: XR KUB DATE OF EXAM: 05/30/2022 COMPARISON: NONE HISTORY: Abdominal pain TECHNIQUE: 2 view FINDINGS: The bowel gas pattern is normal. No significant intestinal obstruction or pneumoperitoneum. Fecal pattern is normal. There are clips from cholecystectomy. No sign of a mass. No calcifications seen over the kidneys. IMPRESSION: Nonacute abdomen.
--- NOTE | 2022-05-30 20:44 | CT ---
EXAMINATION TYPE: CT abdomen pelvis wo con DATE OF EXAM: 05/30/2022 COMPARISON: None HISTORY: abdominal pain and constipation. CT DLP: 1247.4. mGycm Automated exposure control for dose reduction was used. Images obtained of the diaphragm to the floor the pelvis with no contrast. Lung bases are clear of consolidation. No pleural effusion. Heart size is normal. No pericardial effu estrellita. Liver spleen and stomach appear intact. There are clips from cholecystectomy. Bile ducts are not dila willian. No pancreatic mass. There is no adrenal mass. Kidneys show normal size and contour. No hydronephrosis. Ureters are not di lated. No retroperitoneal adenopathy. Bladder distends smoothly. No internal hernia. No free fluid in the pelvis. No pelvic mass. There is previous sigmoid colon surgery. Appendix not seen. No significant appendix. There is no mesenteric edema. No ascites or free air. No sign of a bowel obstruction. The lumbar vertebrae have normal alignment. No compression fracture. Pos terior elements are intact. Bony pelvis is intact. The hip joints are intact. There is 2 cm cortical cyst lower pole right kidney. IMPRESSION: Negative CT scan abdomen and pelvis.
[2022-05-30 21:08] LABS: Basophils # (A) 0.1 k/uL (0-0.2); Basophils % (A) 1 %; Eosinophils # (A) 0.2 k/uL (0-0.7); Eosinophils % (A) 2 %; HGB 14.8 gm/dL (13.0-17.5); Lymphocytes # (A) 2.5 k/uL (1.0-4.8); Lymphocytes % (A) 26 %; MCH 27.5 pg (25.0-35.0); MCHC 31.4 g/dL (31.0-37.0); MCV 87.7 fL (80.0-100.0); Mean Platelet Volume 6.9; Monocytes # (A) 0.5 k/uL (0-1.0); Monocytes % (A) 5 %; Neutrophils # (A) 6.1 k/uL (1.3-7.7); Neutrophils % (A) 64 %; Platelet Count 239 k/uL (150-450); RBC 5.36 m/uL (4.30-5.90); RDW 14.4 % (11.5-15.5); WBC 9.5 k/uL (3.8-10.6)
[2022-05-30 21:16] LABS: Prothrombin Time 10.6 sec (9.0-12.0)
[2022-05-30 21:18] LABS: Albumin 4.7 g/dL (3.5-5.0); Calcium 9.5 mg/dL (8.4-10.2); Potassium 4.2 mmol/L (3.5-5.1); Total Bilirubin 0.4 mg/dL (0.2-1.3); Total Protein 7.5 g/dL (6.3-8.2)
[2022-05-31] MEDS ORDERED: NA PHOS,M-B/NA PHOS,DI-BA 133 ML ENEMA RECTAL ONE
== END 2022-05-31 00:59 | disposition home or self-care (01) ==
LOC: EC 17:17
DX: K59.00 Constipation, unspecified (principal); Z91.041 Radiographic dye allergy status; Z88.6 Allergy status to analgesic agent; J44.9 Chronic obstructive pulmonary disease, unspecified; E78.5 Hyperlipidemia, unspecified; Z87.891 Personal history of nicotine dependence
CPT/HCPCS: 36415; 71046; 74018; 74176; 80053; 83605; 83690; 84484; 85025; 85610; 93005; 99284

== ENCOUNTER 2023-07-31 17:38 | Emergency (ER) | payer OTHER ==
[2023-07-31] MEDS ORDERED: methylPREDNISolone SOD SUCCI 125 MG/2 ML VIAL IV STA (18:06)
[2023-07-31] MEDS ORDERED: KETOROLAC 15 MG/ML 1 ML VIAL IVP STA (18:06)
[2023-07-31] MEDS ORDERED: diphenhydrAMINE 50 MG/ML 1 ML VIAL IVP STA (18:06)
[2023-07-31 18:33] LABS: Basophils % (A) 0 %; Eosinophils # (A) 0.2 k/uL (0-0.7); Eosinophils % (A) 3 %; HCT 42.5 % (39.0-53.0); HGB 14.2 gm/dL (13.0-17.5); Lymphocytes # (A) 2.2 k/uL (1.0-4.8); Lymphocytes % (A) 25 %; MCHC 33.5 g/dL (31.0-37.0); MCV 86.7 fL (80.0-100.0); Mean Platelet Volume 7.1; Monocytes # (A) 0.5 k/uL (0-1.0); Monocytes % (A) 5 %; Neutrophils # (A) 5.7 k/uL (1.3-7.7); Neutrophils % (A) 65 %; Platelet Count 269 k/uL (150-450); RDW 14.2 % (11.5-15.5); WBC 8.7 k/uL (3.8-10.6)
[2023-07-31 18:55] LABS: INR 0.9 (<1.2); Partial Thromboplastin Time 25.7 sec (22.0-30.0); Prothrombin Time 10.3 sec (10.0-12.5)
[2023-07-31 19:40] LABS: ALT 26 U/L (4-49); AST 24 U/L (17-59); African American GFR (CKD) 88 (>60 ml/min/1.73 sqM); Alkaline Phosphatase 74 U/L (38-126); Anion Gap 10 mmol/L; Blood Urea Nitrogen 18 mg/dL (9-20); Calcium 9.3 mg/dL (8.4-10.2); Carbon Dioxide 24 mmol/L (22-30); Chloride 104 mmol/L (98-107); Glucose 104 mg/dL (74-99); Non-African American GFR(CKD) 76 (>60 ml/min/1.73 sqM); Potassium 4.7 mmol/L (3.5-5.1); Sodium 138 mmol/L (137-145); Total Bilirubin 0.4 mg/dL (0.2-1.3); Total Protein 6.9 g/dL (6.3-8.2)
--- NOTE | 2023-07-31 19:54 | ED ---
General Adult HPI - General Chief complaint: Back Pain/Injury Stated complaint: SOB, Upper back pain Time Seen by Provider: 07/31/23 17:57 Source: patient, EMS Mode of arrival: EMS Limitations: no limitations - History of Present Illness Initial comments: This 72-year-old male presents with complaint of pain to his bilateral upper thoracic region. He states that it was severe in nature rated at 10 of 10. It lasted for several hours and is much improved now rated at 410. He describes it as a sharp pain. It occurred when he was doing some work on his tractor. He states that he did not have any injury. This was not significantly exertional work. He denies any anterior chest pain. He denies any shortness of breath. There is no leg pain or swelling. He denies any history of any aortic problems in the past. He apparently had something somewhat similar over the past year and was diagnosed with covid. At this time, he is denying any cough, fevers, chills or other covid symptomatology. He has not taken anything for pain as of yet. No other complaints or modifying factors. - Related Data Home Medications Medication Instructions Recorded Confirmed Cetirizine HCl 5 mg PO DAILY 02/20/21 04/29/22 FLUoxetine HCL [PROzac] 40 mg PO DAILY 04/20/21 04/29/22 allopurinoL [Zyloprim] 300 mg PO DAILY 04/20/21 04/29/22 Solifenacin Succinate [Vesicare] 5 mg PO DAILY 01/10/22 04/29/22 Carboxymethylcellulose Sodium 2 drop BOTH EYES QID PRN 04/29/22 04/29/22 [Refresh Tears] traZODone HCL [Desyrel] 100 - 300 mg PO HS PRN 04/29/22 04/29/22 Previous Rx's Medication Instructions Recorded Cyclobenzaprine [Flexeril] 10 mg PO TID PRN #20 tab 07/31/23 traMADol HCl [Ultram] 50 - 100 mg PO Q6H PRN #15 tab 07/31/23 Allergies Allergy/AdvReac Type Severity Reaction Status Date / Time Iodinated Contrast Media Allergy Unknown Verified 05/30/22 18:40 [Iodinated Contrast Media - IV Dye] morphine AdvReac causes Verified 05/30/22 18:40 vitals to drop MRI Contrast Allergy Shaking Uncoded 05/30/22 18:40 Review of Systems ROS Statement: Those systems with pertinent positive or pertinent negative responses have been documented in the HPI. ROS Other: All systems not noted in ROS Statement are negative. Past Medical History Past Medical History: Asthma, Cancer, COPD, Hyperlipidemia, Osteoarthritis (OA), Prostate Disorder, Sleep Apnea/CPAP/BIPAP Additional Past Medical History / Comment(s): Hx kidney stones. past hx. thoracic outlet syndrome, Colitis. hx. Prostate cancer. 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 pain @times, overactive bladder History of Any Multi-Drug Resistant Organisms: None Reported Past Surgical History: Adenoidectomy, Appendectomy, Bowel Resection, Cholecystectomy, Prostate Surgery, Tonsillectomy Additional Past Surgical History / Comment(s): Bilateral rib resection, COLONOSCOPY, EGD, BILATERAL CATARACTS. Prostatectomy Past Anesthesia/Blood Transfusion Reactions: No Reported Reaction Past Psychological History: PTSD Smoking Status: Former smoker Past Alcohol Use History: None Reported Past Drug Use History: None Reported - Past Family History Sister(s) Family Medical History: Cancer Additional Family Medical History / Comment(s): Breast cancer. Mother Family Medical History: Cancer Additional Family Medical History / Comment(s): Grandfather had Cardiac issues and colon cancer. Grandmother had cardiac issues. General Exam - General Exam Comments Initial Comments: GENERAL: The patient is well nourished and well hydrated. VITAL SIGNS: Heart rate, blood pressure, respiratory rate reviewed as recorded in nurse's notes. EYES: Pupils are round and reactive. Extraocular movements are intact. No conjunctival / lid redness or swelling. ENT: No external evidence of injury, swelling, or ecchymosis. Airway is patent. Throat is clear. NECK: Nontender. No swelling or evidence of injury. No subcutaneous emphysema. Trachea is midline. No thyroid mass. HEART: Regular rate and rhythm. Good peripheral pulses. LUNGS/CHEST: Breath sounds clear and equal bilaterally. No rales, rhonchi, or wheezes. No ecchymosis, subcutaneous emphysema, or tenderness. ABDOMEN: Abdomen soft without tenderness. No palpable masses or organomegaly. No peritoneal signs. No abdominal wall swelling or ecchymosis. EXTREMITIES: No extremity tenderness. Normal muscle tone and function. No thoracolumbar tenderness. NEUROLOGIC: Sensation is grossly intact. Cranial nerve exam reveals face is symmetrical, tongue is midline, speech is clear. SKIN: No abrasions or ecchymosis is noted. No induration or masses noted. PSYCHIATRIC: Alert and oriented. Appropriate behavior and judgment. Limitations: no limitations Course Vital Signs 07/31/23 17:40 Pulse Rate 94 Respiratory 18 Rate Blood Pressure 133/87 O2 Sat by Pulse 96 Oximetry Medical Decision Making - Medical Decision Making The patient was seen and examined. All diagnostics are reviewed. EKG shows a normal sinus rhythm at a rate of 90. There is no acute ST or T wave changes noted per my interpretation. Intervals are normal. An IV is established and he does receive Toradol intravenously. He has iodine listed as an ALLERGY but upon further questioning he states that he is ALLERGIC to gadolinium. He never theless is still pretreated with Solu-Medrol and Benadryl intravenously. CTA of the chest is ordered to rule out aortic dissection. The laboratory did not show any acute significant abnormalities. The CT angiogram of the chest also does not show any acute significant abnormalities per my interpretation and radiologist interpretation. The patient states that he had to lift his arms up for the computed tomography scan and this causes rotator cuff to hurt. He is given 0.5 mg of Dilaudid intravenously with relief of pain. The CT angiogram of the chest does show some slight bulging thoracic discs. His symptomatology potentially could be related to this. It is felt as though he is stable for discharge home. He is prescribed Ultram as well as Flexeril. Does follow up with primary care recommended. If his symptoms persist he may require follow-up with a back surgeon as well. Was pt. sent in by a medical professional or institution (, PA, CONCRETE PAVING MACHINE OPERATOR, urgent care, hospital, or fpc...) When possible be specific @ -No Did you speak to anyone other than the patient for history (EMS, parent, family, police, friend...)? What history was obtained from this source @ -No Did you review nursing and triage notes (agree or disagree)? Why? @ -I reviewed and agree with nursing and triage notes Were old charts reviewed (outside hosp., previous admission, EMS record, old EKG, old radiological studies, urgent care reports/EKG's, fpc records)? Report findings @ -Old records were reviewed and additional past medical history is obtained. Differential Diagnosis (chest pain, altered mental status, abdominal pain women, abdominal pain men, vaginal bleeding, weakness, fever, dyspnea, syncope, headache, dizziness, GI bleed, back pain, seizure, CVA, palpatations, mental health, musculoskeletal)? @ -Thoracic strain, bulging thoracic discs EKG interpreted by me (3pts min.). @ -None X-rays interpreted by me (1pt min.). @ -None done CT interpreted by me (1pt min.). @ -As above U/S interpreted by me (1pt. min.). @ -None done What testing was considered but not performed or refused? (CT, X-rays, U/S, labs)? Why? @ -None What meds were considered but not given or refused? Why? @ -None Did you discuss the management of the patient with other professionals (professionals i.e. , PA, CONCRETE PAVING MACHINE OPERATOR, lab, RT, psych nurse, social insurance specialist, extrusion engineer, teacher, telecommunications officer, block and case maker)? Give summary @ -No Was smoking cessation discussed for >3mins.? @ -No Was critical care preformed (if so, how long)? @ -No Were there social determinants of health that impacted care today? How? (Homelessness, low income, unemployed, alcoholism, drug addiction, transportation, low edu. Level, literacy, decrease access to med. care, senior living, rehab)? @ -No Was there de-escalation of care discussed even if they declined (Discuss DNR or withdrawal of care, Hospice)? DNR status @ -No What co-morbidities impacted this encounter? (DM, HTN, Smoking, COPD, CAD, Cancer, CVA, ARF, Chemo, Hep., AIDS, mental health diagnosis, sleep apnea, morbid obesity)? @ -History of covid Was patient admitted / discharged? Hospital course, mention meds given and route, prescriptions, significant lab abnormalities, going to OR and other pertinent info. @ -Patient was discharged Undiagnosed new problem with uncertain prognosis? @ -No Drug Therapy requiring intensive monitoring for toxicity (Heparin, Nitro, Insulin, Cardizem)? @ -No Were any procedures done? @ -No Diagnosis/symptom? @ -Thoracic pain, bulging thoracic disc, thoracic strain Acute, or Chronic, or Acute on Chronic? @ -Acute Uncomplicated (without systemic symptoms) or Complicated (systemic symptoms)? @ -Uncomplicated Side effects of treatment? @ -No Exacerbation, Progression, or Severe Exacerbation? @ -No Poses a threat to life or bodily function? How? (Chest pain, USA, ID, pneumonia, PE, COPD, DKA, ARF, appy, cholecystitis, CVA, Diverticulitis, Homicidal, Suicidal, threat to staff... and all critical care pts) @ -No - Lab Data Result diagrams: 07/31/23 18:19 07/31/23 19:22 Lab Results 07/31/23 07/31/23 07/31/23 Range/Units 18:19 18:19 18:19 WBC 8.7 (3.8-10.6) k/uL RBC 4.90 (4.30-5.90) m/uL Hgb 14.2 (13.0-17.5) gm/dL Hct 42.5 (39.0-53.0) % MCV 86.7 (80.0-100.0) fL MCH 29.0 (25.0-35.0) pg MCHC 33.5 (31.0-37.0) g/dL RDW 14.2 (11.5-15.5) % Plt Count 269 (150-450) k/uL MPV 7.1 Neutrophils % 65 % Lymphocytes % 25 % Monocytes % 5 % Eosinophils % 3 % Basophils % 0 % Neutrophils # 5.7 (1.3-7.7) k/uL Lymphocytes # 2.2 (1.0-4.8) k/uL Monocytes # 0.5 (0-1.0) k/uL Eosinophils # 0.2 (0-0.7) k/uL Basophils # 0.0 (0-0.2) k/uL PT 10.3 (10.0-12.5) sec INR 0.9 (<1.2) APTT 25.7 (22.0-30.0) sec Sodium (137-145) mmol/L Potassium (3.5-5.1) mmol/L Chloride (98-107) mmol/L Carbon Dioxide (22-30) mmol/L Anion Gap mmol/L BUN (9-20) mg/dL Creatinine (0.66-1.25) mg/dL Est GFR (CKD-EPI)AfAm (>60 ml/min/1.73 sqM) Est GFR (CKD-EPI)NonAf (>60 ml/min/1.73 sqM) Glucose (74-99) mg/dL Calcium (8.4-10.2) mg/dL Total Bilirubin (0.2-1.3) mg/dL AST (17-59) U/L ALT (4-49) U/L Alkaline Phosphatase (38-126) U/L Troponin I <0.012 (0.000-0.034) ng/mL Total Protein (6.3-8.2) g/dL Albumin (3.5-5.0) g/dL 07/31/23 Range/Units 19:22 WBC (3.8-10.6) k/uL RBC (4.30-5.90) m/uL Hgb (13.0-17.5) gm/dL Hct (39.0-53.0) % MCV (80.0-100.0) fL MCH (25.0-35.0) pg MCHC (31.0-37.0) g/dL RDW (11.5-15.5) % Plt Count (150-450) k/uL MPV Neutrophils % % Lymphocytes % % Monocytes % % Eosinophils % % Basophils % % Neutrophils # (1.3-7.7) k/uL Lymphocytes # (1.0-4.8) k/uL Monocytes # (0-1.0) k/uL Eosinophils # (0-0.7) k/uL Basophils # (0-0.2) k/uL PT (10.0-12.5) sec INR (<1.2) APTT (22.0-30.0) sec Sodium 138 (137-145) mmol/L Potassium 4.7 (3.5-5.1) mmol/L Chloride 104 (98-107) mmol/L Carbon Dioxide 24 (22-30) mmol/L Anion Gap 10 mmol/L BUN 18 (9-20) mg/dL Creatinine 0.98 (0.66-1.25) mg/dL Est GFR (CKD-EPI)AfAm 88 (>60 ml/min/1.73 sqM) Est GFR (CKD-EPI)NonAf 76 (>60 ml/min/1.73 sqM) Glucose 104 H (74-99) mg/dL Calcium 9.3 (8.4-10.2) mg/dL Total Bilirubin 0.4 (0.2-1.3) mg/dL AST 24 (17-59) U/L ALT 26 (4-49) U/L Alkaline Phosphatase 74 (38-126) U/L Troponin I (0.000-0.034) ng/mL Total Protein 6.9 (6.3-8.2) g/dL Albumin 4.0 (3.5-5.0) g/dL Disposition Clinical Impression: Thoracic back pain, Bulging of thoracic intervertebral disc, Thoracic myofascial strain Disposition: HOME SELF-CARE Condition: Good Instructions (If sedation given, give patient instructions): Back Pain (ED) Prescriptions: Cyclobenzaprine [Flexeril] 10 mg PO TID PRN #20 tab PRN Reason: Pain traMADol HCl [Ultram] 50 - 100 mg PO Q6H PRN #15 tab PRN Reason: Pain Is patient prescribed a controlled substance at d/c from ED?: Yes When asked, does pt state using other controlled substances?: No If prescribed controlled substance>3 days was MAPS reviewed?: Prescribed <3 Days Referrals: [facility],Clinic [Primary Care Provider] - 1-2 days Time of Disposition: 20:56
--- NOTE | 2023-07-31 20:32 | CT ---
EXAMINATION TYPE: CT angio chest CT DLP: 1268.9 mGycm, Automated exposure control for dose reduction was used. DATE OF EXAM: 07/31/2023 8:20 PM COMPARISON: 04/29/2022 CLINICAL INDICATION:Male, 72 years old with history of aortic dissection suspected; Chest pain, suspe cted aorta dissection TECHNIQUE/CONTRAST: CTA scan of the thorax is performed without and with IV Contrast, patient injected with 100 CC mL of Isovue 370, MIP images are created and reviewed these are created on a separate workstation.. FINDINGS: Pulmonary Artery: There is no evidence for a filling defect within the pulmonary vasculature to sugge st acute pulmonary embolism. The pulmonary artery is of normal size. Lungs/Pleura: No evidence of focal consolidation, pleural effusion or pneumothorax. Scattered sub-4 m m pulmonary nodules. Airway: Large airways are patent. Scattered atherosclerosis of the arterial coronary vasculature Heart: Heart is within normal limits for size. Vasculature: No evidence for intramural hematoma on noncontrast imaging. No evidence of intimal flap to suggest dissection. No aneurysm identified. Scattered atherosclerotic disease. Mediastinum: No gross evidence of adenopathy. Musculoskeletal: Mild degenerative disc disease changes are present throughout the thoracolumbar spin e. Soft Tissues: Unremarkable. Lower neck: No significant findings. Upper Abdomen: The gallbladder surgically absent. Scattered colonic diverticula. IMPRESSION: No evidence for aortic dissection, pulmonary embolism or acute thoracic process.
[2023-07-31] MEDS ORDERED: HYDROmorphone 0.5 MG/0.5 ML SYRINGE IVP STA (20:42)
[2023-07-31 21:21] VITALS: BP 148/80; PULSE 77; RESP 16
== END 2023-07-31 21:39 | disposition home or self-care (01) ==
LOC: EC 17:38
DX: S29.012A Strain of muscle and tendon of back wall of thorax, initial encounter (principal); M51.34 Other intervertebral disc degeneration, thoracic region; J44.89 Other specified chronic obstructive pulmonary disease; G47.30 Sleep apnea, unspecified; Z87.891 Personal history of nicotine dependence; Z88.5 Allergy status to narcotic agent; Z88.8 Allergy status to other drugs, medicaments and biological substances; X58.XXXA Exposure to other specified factors, initial encounter
CPT/HCPCS: 36415; 93005; 80053; 84484; 85025; 85610; 85730; 71275; 99285; 96374; 96375 ×3; J1200; J2930; J1885; J1170; Q9967

== ENCOUNTER 2024-03-23 11:36 | Observation (INO) | payer OTHER ==
--- NOTE | 2024-03-23 12:22 | ED ---
General Adult HPI - General Chief complaint: Syncope Stated complaint: syncope Time Seen by Provider: 03/23/24 12:01 Source: patient, RN notes reviewed Mode of arrival: ambulatory Limitations: no limitations - History of Present Illness Initial comments: Patient is a 73-year-old male present to the emergency department with syncopal episode. Episode occurred this morning. No injury. Patient had a second episode of near syncope following that. Patient states he is feeling normal at this time. Patient has been having a significant amount of diarrhea since yesterday. Patient is concerned his electrolytes may be off. Patient has some mild lower back discomfort however that is chronic and unchanged. Patient did feel a little bit lightheaded during the episode. - Related Data Home Medications Medication Instructions Recorded Confirmed Cetirizine HCl 10 mg PO DAILY 02/20/21 03/23/24 FLUoxetine HCL [PROzac] 40 mg PO DIRECTED 04/20/21 03/23/24 allopurinoL [Zyloprim] 300 mg PO DIRECTED 04/20/21 03/23/24 Mirabegron [Myrbetriq] 50 mg PO DIRECTED 03/23/24 03/23/24 Solifenacin Succinate 10 mg PO DIRECTED 03/23/24 03/23/24 buPROPion XL [Wellbutrin XL] 150 mg PO DIRECTED 03/23/24 03/23/24 traZODone HCL [Desyrel] 150 mg PO DIRECTED 03/23/24 03/23/24 Allergies Allergy/AdvReac Type Severity Reaction Status Date / Time Iodinated Contrast Media Allergy Unknown Verified 05/30/22 18:40 [Iodinated Contrast Media - IV Dye] morphine AdvReac causes Verified 05/30/22 18:40 vitals to drop MRI Contrast Allergy Shaking Uncoded 05/30/22 18:40 Review of Systems ROS Statement: Those systems with pertinent positive or pertinent negative responses have been documented in the HPI. ROS Other: All systems not noted in ROS Statement are negative. Constitutional: Denies: fever Eyes: Denies: eye pain ENT: Denies: ear pain Respiratory: Denies: dyspnea Cardiovascular: Denies: chest pain Endocrine: Denies: fatigue Gastrointestinal: Reports: as per HPI, diarrhea Neurological: Denies: headache Past Medical History Past Medical History: Asthma, Cancer, COPD, Hyperlipidemia, Osteoarthritis (OA), Prostate Disorder, Sleep Apnea/CPAP/BIPAP Additional Past Medical History / Comment(s): Hx kidney stones. past hx. thoracic outlet syndrome, Colitis. hx. Prostate cancer. 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 pain @times, overactive bladder History of Any Multi-Drug Resistant Organisms: None Reported Past Surgical History: Adenoidectomy, Appendectomy, Bowel Resection, Cholecystectomy, Prostate Surgery, Tonsillectomy Additional Past Surgical History / Comment(s): Bilateral rib resection, COL ONOSCOPY, EGD, BILATERAL CATARACTS. Prostatectomy Past Anesthesia/Blood Transfusion Reactions: No Reported Reaction Past Psychological History: PTSD Smoking Status: Former smoker Past Alcohol Use History: None Reported Past Drug Use History: None Reported - Past Family History Sister(s) Family Medical History: Cancer Additional Family Medical History / Comment(s): Breast cancer. Mother Family Medical History: Cancer Additional Family Medical History / Comment(s): Grandfather had Cardiac issues and colon cancer. Grandmother had cardiac issues. General Exam Limitations: no limitations General appearance: alert, in no apparent distress Head exam: Present: atraumatic, normocephalic Eye exam: Present: normal appearance, PERRL, EOMI ENT exam: Present: normal oropharynx Neck exam: Present: normal inspection. Absent: tenderness, meningismus Respiratory exam: Present: normal lung sounds bilaterally Cardiovascular Exam: Present: regular rate, normal rhythm, normal heart sounds Expanded Peripheral pulses: 2+: Radial (R), Radial (L), Posterior Tibialis (R), Posterior Tibialis (L) GI/Abdominal exam: Present: soft, normal bowel sounds. Absent: distended, tenderness, guarding, rebound, rigid, pulsatile mass Extremities exam: Present: normal inspection Neurological exam: Present: alert, oriented X3, CN II-XII intact. Absent: motor sensory deficit Psychiatric exam: Present: normal affect, normal mood Skin exam: Present: normal color Course Vital Signs 03/23/24 11:56 Temperature 97.4 F L Pulse Rate 90 Respiratory 20 Rate Blood Pressure 110/68 O2 Sat by Pulse 93 L Oximetry EKG Findings - EKG Results: EKG: interpreted by ERMD, sinus rhythm, normal axis, normal QRS, normal ST/T Medical Decision Making - Medical Decision Making Was pt. sent in by a medical professional or institution (, PA, SASH FINISHER, urgent care, hospital, or long term...) When possible be specific @ -No Did you speak to anyone other than the patient for history (EMS, parent, family, police, friend...)? What history was obtained from this source @ -No Did you review nursing and triage notes (agree or disagree)? Why? @ -I reviewed and agree with nursing and triage notes Were old charts reviewed (outside hosp., previous admission, EMS record, old EKG, old radiological studies, urgent care reports/EKG's, long term records)? Report findings @ -No old charts were reviewed Differential Diagnosis (chest pain, altered mental status, abdominal pain women, abdominal pain men, vaginal bleeding, weakness, fever, dyspnea, syncope, headache, dizziness, GI bleed, back pain, seizure, CVA, palpatations, mental health, musculoskeletal)? @ -Differential Syncope: Valvular disease, hypertrophic cardiomyopathy, pulmonary embolism, tamponade, tachycardia, bradycardia, WI, hypovolemia, hemorrhage, dissection, anemia, intracranial hemorrhage, seizure, hypoglycemia, carbon monoxide poisoning, this is not meant to be an all-inclusive list. EKG interpreted by me (3pts min.). @ -As above X-rays interpreted by me (1pt min.). @ -Chest x-ray without acute abnormality. CT interpreted by me (1pt min.). @ -None done U/S interpreted by me (1pt. min.). @ -None done What testing was considered but not performed or refused? (CT, X-rays, U/S, labs)? Why? @ -None What meds were considered but not given or refused? Why? @ -None Did you discuss the management of the patient with other professionals (professionals i.e. , PA, SASH FINISHER, lab, RT, psych nurse, social service technician, structural steel ironworker, teacher, airfield services officer, major case detective)? Give summary @ -Case discussed with Dr. Agustin who will admit this RI patient Was smoking cessation discussed for >3mins.? @ -No Was critical care preformed (if so, how long)? @ -No Were there social determinants of health that impacted care today? How? (Homelessness, low income, unemployed, alcoholism, drug addiction, transportation, low edu. Level, literacy, decrease access to med. care, fdc, rehab)? @ -No Was there de-escalation of care discussed even if they declined (Discuss DNR or withdrawal of care, Hospice)? DNR status @ -No What co-morbidities impacted this encounter? (DM, HTN, Smoking, COPD, CAD, Cancer, CVA, ARF, Chemo, Hep., AIDS, mental health diagnosis, sleep apnea, morbid obesity)? @ -None Was patient admitted / discharged? Hospital course, mention meds given and route, prescriptions, significant lab abnormalities, going to OR and other perti nent info. @ -Patient reevaluated and updated. Cause of syncope is unclear. Patient states he is starting to develop gradual headache. CT will be added. Admission orders written Undiagnosed new problem with uncertain prognosis? @ -No Drug Therapy requiring intensive monitoring for toxicity (Heparin, Nitro, Insulin, Cardizem)? @ -No Were any procedures done? @ -No Diagnosis/symptom? @ -Syncope Acute, or Chronic, or Acute on Chronic? @ -Acute Uncomplicated (without systemic symptoms) or Complicated (systemic symptoms)? @ -Default Side effects of treatment? @ -No Exacerbation, Progression, or Severe Exacerbation? @ -No Poses a threat to life or bodily function? How? (Chest pain, [place], WI, pneumonia, PE, COPD, DKA, ARF, appy, cholecystitis, CVA, Diverticulitis, Homicidal, Suicidal, threat to staff... and all critical care pts) @ -No - Lab Data Result diagrams: 03/23/24 12:19 03/23/24 12:19 Lab Results 03/23/24 03/23/24 03/23/24 Range/Units 12:19 12:19 12:19 WBC 9.5 (3.8-10.6) k/uL RBC 5.28 (4.30-5.90) m/uL Hgb 14.8 (13.0-17.5) gm/dL Hct 46.5 (39.0-53.0) % MCV 87.9 (80.0-100.0) fL MCH 28.1 (25.0-35.0) pg MCHC 31.9 (31.0-37.0) g/dL RDW 14.1 (11.5-15.5) % Plt Count 273 (150-450) k/uL MPV 7.2 Neutrophils % 73 % Lymphocytes % 18 % Monocytes % 5 % Eosinophils % 2 % Basophils % 0 % Neutrophils # 7.0 (1.3-7.7) k/uL Lymphocytes # 1.7 (1.0-4.8) k/uL Monocytes # 0.5 (0-1.0) k/uL Eosinophils # 0.2 (0-0.7) k/uL Basophils # 0.0 (0-0.2) k/uL PT 10.0 (10.0-12.5) sec INR 0.9 (<1.2) APTT 22.1 (22.0-30.0) sec D-Dimer 0.32 (<0.60) mg/L FEU Sodium 139 (137-145) mmol/L Potassium 4.5 (3.5-5.1) mmol/L Chloride 105 (98-107) mmol/L Carbon Dioxide 26 (22-30) mmol/L Anion Gap 8 mmol/L BUN 20 (9-20) mg/dL Creatinine 1.21 (0.66-1.25) mg/dL Est GFR (CKD-EPI)AfAm 68 (>60 ml/min/1.73 sqM) Est GFR (CKD-EPI)NonAf 58 (>60 ml/min/1.73 sqM) Glucose 137 H (74-99) mg/dL Calcium 9.2 (8.4-10.2) mg/dL Magnesium 2.6 H (1.6-2.3) mg/dL Total Bilirubin 0.3 (0.2-1.3) mg/dL AST 21 (17-59) U/L ALT 21 (4-49) U/L Alkaline Phosphatase 77 (38-126) U/L Troponin I (0.000-0.034) ng/mL Total Protein 6.7 (6.3-8.2) g/dL Albumin 4.1 (3.5-5.0) g/dL 03/23/24 Range/Units 12:19 WBC (3.8-10.6) k/uL RBC (4.30-5.90) m/uL Hgb (13.0-17.5) gm/dL Hct (39.0-53.0) % MCV (80.0-100.0) fL MCH (25.0-35.0) pg MCHC (31.0-37.0) g/dL RDW (11.5-15.5) % Plt Count (150-450) k/uL MPV Neutrophils % % Lymphocytes % % Monocytes % % Eosinophils % % Basophils % % Neutrophils # (1.3-7.7) k/uL Lymphocytes # (1.0-4.8) k/uL Monocytes # (0-1.0) k/uL Eosinophils # (0-0.7) k/uL Basophils # (0-0.2) k/uL PT (10.0-12.5) sec INR (<1.2) APTT (22.0-30.0) sec D-Dimer (<0.60) mg/L FEU Sodium (137-145) mmol/L Potassium (3.5-5.1) mmol/L Chloride (98-107) mmol/L Carbon Dioxide (22-30) mmol/L Anion Gap mmol/L BUN (9-20) mg/dL Creatinine (0.66-1.25) mg/dL Est GFR (CKD-EPI)AfAm (>60 ml/min/1.73 sqM) Est GFR (CKD-EPI)NonAf (>60 ml/min/1.73 sqM) Glucose (74-99) mg/dL Calcium (8.4-10.2) mg/dL Magnesium (1.6-2.3) mg/dL Total Bilirubin (0.2-1.3) mg/dL AST (17-59) U/L ALT (4-49) U/L Alkaline Phosphatase (38-126) U/L Troponin I <0.012 (0.000-0.034) ng/mL Total Protein (6.3-8.2) g/dL Albumin (3.5-5.0) g/dL Disposition Clinical Impression: Syncope Disposition: ADMITTED IP TO THIS HOSP Is patient prescribed a controlled substance at d/c from ED?: No Referrals: [facility],Clinic [Primary Care Provider] - 1-2 days Time of Disposition: 15:27
[2024-03-23] MEDS: SODIUM CHLORIDE 0.9% 1,000 ML IV STA (12:33)
[2024-03-23 12:57] LABS: Basophils % (A) 0 %; Eosinophils # (A) 0.2 k/uL (0-0.7); Eosinophils % (A) 2 %; HCT 46.5 % (39.0-53.0); HGB 14.8 gm/dL (13.0-17.5); Lymphocytes # (A) 1.7 k/uL (1.0-4.8); Lymphocytes % (A) 18 %; MCH 28.1 pg (25.0-35.0); MCHC 31.9 g/dL (31.0-37.0); MCV 87.9 fL (80.0-100.0); Mean Platelet Volume 7.2; Monocytes # (A) 0.5 k/uL (0-1.0); Monocytes % (A) 5 %; Neutrophils % (A) 73 %; Platelet Count 273 k/uL (150-450); RBC 5.28 m/uL (4.30-5.90); RDW 14.1 % (11.5-15.5); WBC 9.5 k/uL (3.8-10.6)
[2024-03-23 13:10] LABS: INR 0.9 (<1.2); Partial Thromboplastin Time 22.1 sec (22.0-30.0)
[2024-03-23 13:11] LABS: ALT 21 U/L (4-49); AST 21 U/L (17-59); African American GFR (CKD) 68 (>60 ml/min/1.73 sqM); Albumin 4.1 g/dL (3.5-5.0); Alkaline Phosphatase 77 U/L (38-126); Anion Gap 8 mmol/L; Blood Urea Nitrogen 20 mg/dL (9-20); Calcium 9.2 mg/dL (8.4-10.2); Carbon Dioxide 26 mmol/L (22-30); Chloride 105 mmol/L (98-107); Glucose 137 mg/dL (74-99); Magnesium 2.6 mg/dL (1.6-2.3); Non-African American GFR(CKD) 58 (>60 ml/min/1.73 sqM); Potassium 4.5 mmol/L (3.5-5.1); Sodium 139 mmol/L (137-145); Total Bilirubin 0.3 mg/dL (0.2-1.3); Total Protein 6.7 g/dL (6.3-8.2)
--- NOTE | 2024-03-23 13:18 | XR ---
EXAMINATION TYPE: XR chest 2V DATE OF EXAM: 03/23/2024 COMPARISON: 05/30/2022 HISTORY: 73-year-old male syncope and headache TECHNIQUE: AP and lateral views FINDINGS: Heart limits of normal in size. Hazy densities relating to AP technique and body habitus. Similar tet belen of the lateral left hemidiaphragm compatible pleural-parenchymal scarring. No cj consolidat ion or pleural effusion seen. IMPRESSION: Chronic changes including pleural parenchymal scarring at the lateral left base. No acute process see n.
[2024-03-23] MEDS ORDERED: NALOXONE 0.4 MG/ML 1 ML VIAL IV PRN (15:28)
--- NOTE | 2024-03-23 16:06 | CT ---
EXAMINATION TYPE: CT brain wo con DATE OF EXAM: 03/23/2024 COMPARISON: None HISTORY: Syncope CT DLP: 1150.4 mGycm Automated exposure control for dose reduction was used Findings: The ventricles, basal cisterns and sulci over convexities are within normal limits for the patient's age. There is no mass effect or shift of midline structures. There is a small to moderate focal area of encephalomalacia involving the right parietal lobe consist ent with a remote infarct. There is no acute intra or extra-axial hemorrhage. Posterior fossa is grossly normal. Intraorbital contents appear normal symmetric. Visualized paranasal sinuses and mastoid air cells are well aerated. The there is evidence for sinona herman antrostomies. IMPRESSION: 1. No acute bleed or mass effect. 2. Remote right parietal cortical infarct.
[2024-03-23] MEDS: ACETAMINOPHEN TAB 500 MG TAB PO STA (16:36)
[2024-03-23] MEDS: NON FORMULARY DRUG (Mirabegron [Myrbetriq] 50 MG Tab.Er.24h) PO SCH (16:37)
[2024-03-23] MEDS: FLUoxetine HCL 20 MG CAP PO SCH (16:37)
[2024-03-23] MEDS: allopurinoL 300 MG TAB PO SCH (16:37)
[2024-03-23] MEDS: buPROPion XL 150 MG TAB.ER.24H PO SCH (16:37)
[2024-03-23] MEDS: SODIUM CHLORIDE 0.9% 1,000 ML IV SCH (16:54)
--- NOTE | 2024-03-23 17:00 | P.HPIM ---
History of Present Illness H&P Date: 03/23/24 73-year-old male with a past medical history of asthma, COPD, cancer (prostate and melanoma both in remission), dyslipidemia, OA, sleep apnea (not on BiPAP). Patient states this morning he had gotten out of the shower and was going about his morning routine when he suddenly passed out. Patient reports waking up on the carpeted floor with no recollection of how he had gotten there. Patient assumed that he had passed out and fallen. Patient states he continued to go about his day after that. Patient reports later outside in his driveway in the presence of his neighbor, he felt like he was going to pass out. He was able to climb into the cab of his truck and turned on the air and did not pass out. Patient reports his neighbor was concerned and suggested he take him to the emergency department. Upon arrival to the ED patient admits to having diarrhea for 1 day but denies seeing any blood and has only had 2 episodes. Patient also admits to headache which he rates as a 9-10/10 which is stronger than his normal headaches (6-7/10). Patient reports the headache started sometime between transit and arrival at the ED. Patient admits to headache and diarrhea but denies chest pain, shortness of breath, palpitations, abdominal pain, and constipation. In the ED patient received an ECG which showed normal sinus rhythm and no axis deviation as well as a chest x-ray which showed no acute cardiopulmonary process. Labs in the ED: Sodium 139, potassium 4.5, chloride 105, bicarb 26, BUN 20, creatinine 1.21, glucose 137, magnesium 2.6, calcium 9.2, total bilirubin 0.3, alkaline phosphatase 77, troponin less than 0.012, WBC 9.5, hemoglobin 14.8, MCV 87.9, PT 10, INR 0.9, D-dimer 0.32. Patient received 1000 mg Tylenol for headache. Patient also received normal saline in the ED. Home medication list reconciled, continuing all except solifenacin succinate, trazodone, and mirabegron. Patient will be admitted for further workup of syncopal episode plus second episode of near syncope with unknown etiology. Pertinent positives and negatives discussed above, a complete review of systems was preformed and all the other sytems were negative. Vitals Signs Reveiwed. General: non toxic, no distress, appears at stated age, normal weight Derm: no unusual rashes/lesions, warm Head: atraumatic, normocephalic, symmetric Eyes: EOMI, no lid lag, anicteric sclera, pupils equal round reactive to light ENT: Nose and ears atraumatic Neck: No cervical lymphadenopathy, trachea midline, supple Mouth: no lip lesion, mucus membranes moist Cardiovascular: S1S2 reg, no murmur, positive dorsalis pedis pulse bilateral, no edema Lungs: Lungs clear to auscultation bilaterally, no rhonchi, no rales, no accessory muscle use Abdominal: soft, nontender to palpation, no guarding, tenderness in the right lower quadrant. Ext: muscle strength 5 out of 5 in all 4 extremities grossly, no gross muscle atrophy, no contractures, Neuro: CN II-XI grossly intact, no gross focal neuro deficits Psych: Alert, oriented, appropriate affect Assesment: 73-year-old male with a past medical history of asthma, COPD, cancer (prostate melanoma both in remission), dyslipidemia, OA, sleep apnea (not on BiPAP) presented to the ED with 1 episode of syncope followed by another episode of near syncope. Patient is being worked up for syncope with unknown etiology. Plan: Syncopal episode with unknown etiology: Orthostatic vs. vasovagal vs. cardiac vs. medication vs. neurological Patient had an ECG which showed NSR without axis deviation and a CXR which showed no acute cardiopulmonary process Patient received cardiac workup in that included an echo and pharmacological stress test which the patient states came back normal (normally sees Dr. Andrews.) Patient will receive new cardio workup including echo to rule out cardiac etiology of syncope Solifenacin succinate, trazodone, and mirabegron held as either could be source of orthostatic BMP shows no gross metabolic derangements Checking orthostatics (will discontinue fluids if orthostatics are normal) Follow-up results of CT head - continue on tele, fall precautions and neurochecks Headache: Patient initially started feeling headache between transit and arrival at the emergency department Patient rates the headache as a 9 out of 10 pain, patient states his headaches normally feel about a 6 out of 10 for pain Will follow-up results of CT head Patient admits to generalized weakness but denied numbness tingling, slurred speech, or facial drooping - tylenol PRN Diarrhea: Patient started having diarrhea 1 day ago and has had 2 episodes since He has not noticed any blood in the diarrhea Labs show no gross metabolic derangement from diarrhea, patient currently receiving normal saline but will discontinue if orthostatics come back normal. Chronic: Cancer (prostate and melanoma both in remission), asthma, COPD, dyslipidemia, OA, sleep apnea (not on BiPAP), depression, overactive bladder - patient not on any inhalers at home or statin F sodium chloride at 75 cc/hr E none N heart healthy diet A normally walks unassisted at home DVT ppx: wait for CT head Code Status: Full code Anticipated discharge place: To home Anticipated discharge time: Pending clinical course, potentially tomorrow (03/24) The patient is admitted with an anticipated less than 2 midnight stay as observation status for evaluation of syncope. Surrogate decision-maker: Sibling A total of 55 minutes was spent on the care of this complex patient more than 50% of the time was spent in counseling and care coordination. I have seen and evaluated the patient today. Discussed with the resident and agree with the residents finding and plan as documented in the resident's note. Changes highlighted in blue font. Past Medical History Past Medical History: Asthma, Cancer, COPD, Hyperlipidemia, Osteoarthritis (OA), Prostate Disorder, Sleep Apnea/CPAP/BIPAP Additional Past Medical History / Comment(s): Hx kidney stones. past hx. thoracic outlet syndrome, Colitis. hx. Prostate cancer. 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 pain @times, overactive bladder History of Any Multi-Drug Resistant Organisms: None Reported Past Surgical History: Adenoidectomy, Appendectomy, Bowel Resection, Cholecystectomy, Prostate Surgery, Tonsillectomy Additional Past Surgical History / Comment(s): Bilateral rib resection, COLONOSCOPY, EGD, BILATERAL CATARACTS. Prostatectomy Past Anesthesia/Blood Transfusion Reactions: No Reported Reaction Past Psychological History: PTSD Smoking Status: Former smoker Past Alcohol Use History: None Reported Past Drug Use History: None Reported - Past Family History Sister(s) Family Medical History: Cancer Additional Family Medical History / Comment(s): Breast cancer. Mother Family Medical History: Cancer Additional Family Medical History / Comment(s): Grandfather had Cardiac issues and colon cancer. Grandmother had cardiac issues. Medications and Allergies Home Medications Medication Instructions Recorded Confirmed Type Cetirizine HCl 10 mg PO DAILY 02/20/21 03/23/24 History FLUoxetine HCL [PROzac] 40 mg PO DAILY 04/20/21 03/23/24 History allopurinoL [Zyloprim] 300 mg PO DAILY 04/20/21 03/23/24 History Carboxymethylcellulose Sodium 1 drop BOTH EYES QID PRN 03/23/24 03/23/24 History [Refresh Tears] Mirabegron [Myrbetriq] 50 mg PO DAILY 03/23/24 03/23/24 History Solifenacin Succinate 10 mg PO DAILY 03/23/24 03/23/24 History buPROPion XL [Wellbutrin XL] 150 mg PO DAILY 03/23/24 03/23/24 History traZODone HCL [Desyrel] 150 mg PO HS 03/23/24 03/23/24 History Allergies Allergy/AdvReac Type Severity Reaction Status Date / Time Iodinated Contrast Media Allergy Unknown Verified 03/23/24 16:02 [Iodinated Contrast Media - IV Dye] morphine AdvReac causes Verified 03/23/24 16:02 vitals to drop MRI Contrast Allergy Shaking Uncoded 05/30/22 18:40 Physical Exam Vitals: Vital Signs Temp Pulse Resp BP Pulse Ox 03/23/24 11:56 97.4 F L 90 20 110/68 93 L Intake and Output 03/23/24 03/23/24 03/23/24 06:59 14:59 22:59 Other: Weight 122.47 kg Results CBC & Chem 7: 03/23/24 12:19 03/23/24 12:19 Labs: Abnormal Lab Results - Last 24 Hours (Table) 03/23/24 Range/Units 12:19 Glucose 137 H (74-99) mg/dL Magnesium 2.6 H (1.6-2.3) mg/dL
[2024-03-23] MEDS: KETOROLAC 15 MG/ML 1 ML VIAL IVP STA (20:12)
[2024-03-23] MEDS: METOCLOPRAMIDE 5 MG/ML 2 ML VIAL IVP STA (20:12)
[2024-03-24] MEDS: LORATADINE 10 MG TAB PO SCH (08:51)
[2024-03-24 10:38] LABS: HCT 41.1 % (39.6-50.0); MCH 27.9 pg (27.0-32.0); MCHC 31.6 g/dL (32.0-37.0); MCV 88.2 FL (80.0-97.0); Mean Platelet Volume 9.2 FL (9.5-12.2); NRBC Per 100 WBC 0 X 10*3/uL (0.00-0.01); Platelet Count 244 X 10*3/uL (140-440); RBC 4.66 X 10*6/uL (4.40-5.60); RDW 13.9 % (11.5-14.5); WBC 9.85 X 10*3/uL (4.50-10.00)
[2024-03-24 10:39] LABS: Basophils # (A) 0.04 X 10*3/uL (0.00-0.10); Basophils % (A) 0.4 %; Eosinophils # (A) 0.31 X 10*3/uL (0.04-0.35); Eosinophils % (A) 3.1 %; Lymphocytes # (A) 2.16 X 10*3/uL (0.90-5.00); Lymphocytes % (A) 21.9 %; Monocytes # (A) 0.61 X 10*3/uL (0.20-1.00); Monocytes % (A) 6.2 %; Neutrophils # (A) 6.69 X 10*3/uL (1.80-7.70)
[2024-03-24 11:05] LABS: ALT 18 U/L (10-49); AST 15 U/L (14-35); Albumin 3.9 g/dL (3.8-4.9); Albumin/Globulin Ratio 1.86 Ratio (1.60-3.17); Alkaline Phosphatase 77 U/L (41-126); BUN/Creat Ratio 17.09 Ratio (12.00-20.00); Blood Urea Nitrogen 18.8 mg/dL (9.0-27.0); Calcium 8.8 mg/dL (8.7-10.3); Carbon Dioxide 27.2 mmol/L (21.6-31.8); Chloride 103 mmol/L (96-109); Globulin 2.1 g/dL (1.6-3.3); Glucose 124 mg/dL (70-110); Potassium 4.3 mmol/L (3.5-5.5); Sodium 139 mmol/L (135-145); Total Bilirubin 0.2 mg/dL (0.3-1.2)
--- NOTE | 2024-03-24 14:49 | P.CNNES ---
History of Present Illness Consult date: 03/24/24 Requesting physician: Gela Landers Reason for Consult: Syncope History of Present Illness: Patient is a 73-year-old right-handed male, came to the hospital yesterday at 11:36 AM for a syncopal spell. Patient states that yesterday morning he woke up and was feeling fine. He took a shower, ate banana, took his morning pills and sat in the chair. He was watching news at around 9 AM, when he blacked out w ithout any warning and woke up on the floor. He does not know how long he was out for. He lives by himself, there was no witness. There was note tongue bite, loss of control of urine. At around 10:30 AM, he went outside to help out his neighbor. He was putting tractor on the trailer, then rolled up the cable when he noticed that his back started hurting. He felt he will blackout. He had it to the truck and sat in the front seat. He turned on the air conditioner. The neighbor noticed that he did not look right, therefore they brought him to the hospital. Patient denies any slurred speech, focal weakness, double vision or loss of vision or any strokelike symptoms. Patient admits to having diarrhea about 4 times on Saturday. It was semisolid, but then turned into watery. He also had 1 bowel movement of diarrhea on Saturday morning, on the day of admission. Patient admits to having history of colitis and diverticulitis in the past. Vital signs on arrival blood pressure 110/68, pulse rate 90, temperature 97.4. Patient had orthostatics checked, in which supine blood pressure 119/62, sitting 126/64 and standing 120/66. Overall orthostatics negative. Blood test shows normal CBC PT PTT, normal CMP. Troponin negative. EKG showed normal sinus rhythm. Chest x-ray showed chronic changes including pleural-parenchymal scarring at the lateral left base. No acute process. CT head showed no acute bleed or mass effect. Remote right parietal cortical infarct. I personally re viewed CT head, agree with the findings. Patient's home medications include Myrbetriq, Wellbutrin XL 150 mg daily, trazodone 150 mg, Prozac 40 mg, allopurinol. He does not take any antiplatelet medication. Patient denies any history of hypertension or diabetes. He smoked only for few months when he was in [place]. Has not smoked for 50 years. Denies any alcohol use. Patient denies any history of strokes or TIA. No history of seizures. No family history of epilepsy. Review of Systems Constitutional: Denies chills, Denies fever Eyes: denies blurred vision, denies diplopia, denies pain Ears: bilateral: decreased hearing, deny: ear discharge Ears, nose, mouth and throat: Reports headache (when got here, gone now ), Reports sore throat (last week), Denies vertigo Cardiovascular: Denies chest pain, Denies lightheadedness, Denies shortness of breath Respiratory: Reports cough, Reports excessive sputum Gastrointestinal: Reports diarrhea, Denies abdominal pain, Denies nausea, Denies vomiting Musculoskeletal: Reports low back pain (since yesterday), Reports neck pain (always has it) Integumentary: Denies pruritus, Denies rash Neurological: Reports as per HPI Psychiatric: Reports anxiety, Reports depression Hematologic/Lymphatic: Denies easy bleeding, Denies easy bruising Past Medical History Past Medical History: Asthma, Cancer, COPD, Hyperlipidemia, Osteoarthritis (OA), Prostate Disorder, Sleep Apnea/CPAP/BIPAP Additional Past Medical History / Comment(s): Hx kidney stones. past hx. thoracic outlet syndrome, Colitis. hx. Prostate cancer. 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 pain @times, overactive bladder History of Any Multi-Drug Resistant Organisms: None Reported Past Surgical History: Adenoidectomy, Appendectomy, Bowel Resection, Cholecystectomy, Prostate Surgery, Tonsillectomy Additional Past Surgical History / Comment(s): Bilateral rib resection, COLONOSCOPY, EGD, BILATERAL CATARACTS. Prostatectomy Past Anesthesia/Blood Transfusion Reactions: No Reported Reaction Past Psychological History: PTSD Smoking Status: Former smoker Past Alcohol Use History: None Reported Past Drug Use History: None Reported - Past Family History Sister(s) Family Medical History: Cancer Additional Family Medical History / Comment(s): Breast cancer. Mother Family Medical History: Cancer Additional Family Medical History / Comment(s): Grandfather had Cardiac issues and colon cancer. Grandmother had cardiac issues. Medications and Allergies Home Medications Medication Instructions Recorded Confirmed Type Cetirizine HCl 10 mg PO DAILY 02/20/21 03/23/24 History FLUoxetine HCL [PROzac] 40 mg PO DAILY 04/20/21 03/23/24 History allopurinoL [Zyloprim] 300 mg PO DAILY 04/20/21 03/23/24 History Carboxymethylcellulose Sodium 1 drop BOTH EYES QID PRN 03/23/24 03/23/24 History [Refresh Tears] Mirabegron [Myrbetriq] 50 mg PO DAILY 03/23/24 03/23/24 History Solifenacin Succinate 10 mg PO DAILY 03/23/24 03/23/24 History buPROPion XL [Wellbutrin XL] 150 mg PO DAILY 03/23/24 03/23/24 History traZODone HCL [Desyrel] 150 mg PO HS 03/23/24 03/23/24 History Allergies Allergy/AdvReac Type Severity Reaction Status Date / Time Iodinated Contrast Media Allergy Unknown Verified 03/23/24 16:02 [Iodinated Contrast Media - IV Dye] morphine AdvReac causes Verified 03/23/24 16:02 vitals to drop MRI Contrast Allergy Shaking Uncoded 05/30/22 18:40 Physical Examination - Vital Signs Vital Signs: Vital Signs Temp Pulse Pulse Resp BP BP BP 03/24/24 11:44 97.6 F 71 17 130/52 03/24/24 06:28 98.0 F 69 16 126/64 124/66 03/24/24 01:07 64 18 03/23/24 19:53 98.4 F 72 16 142/80 03/23/24 17:51 85 16 129/77 BP BP Pulse Ox 03/24/24 11:44 95 03/24/24 06:28 119/62 98 03/24/24 01:07 128/66 98 03/23/24 19:53 96 03/23/24 17:51 99 Intake and Output 03/23/24 03/24/24 03/24/24 22:59 06:59 14:59 Output Total 300 Balance -300 Output: Urine 300 Patient is an elderly male, in no acute distress. Patient is alert awake oriented to time place and person. Speech and language functions are normal. Patient can name and repeat very well. No aphasia or dysarthria. Attention, concentration and fund of knowledge is adequate. On cranial nerve examination, pupils are equal, round and reacting to light, visual motley are full on confrontation, with no neglect on double simultaneous stimulation. Extraocular muscles are intact with no nystagmus. Face is symmetric, tongue protrudes to the midline. Palatal elevation and sensation normal, hearing and shoulder shrug normal, facial sensation normal. On muscle strength testing, there is no pronator drift and the strength is normal in arms and legs distally and proximally. Deep tendon reflexes are symmetric trace at the knees but absent elsewhere. Sensory to touch is equal with no neglect on double simultaneous stimulation. Cerebellar function showed no ataxia for [id number] testing. No dysdiadochokinesia. No ataxia for [id number] testing on either side. Tone and bulk of muscles normal. Gait deferred.. On general examination, there is no carotid bruit or murmur, S1-S2 audible. Chest is clear on consultation. Abdomen is soft nontender. No organomegaly, bowel sounds present. Peripheral pulses are present. No peripheral edema. Results - Laboratory Findings CBC and BMP: 03/24/24 08:11 03/24/24 08:11 Abnormal Lab Findings: Abnormal Labs 03/23/24 03/24/24 03/24/24 12:19 08:11 08:11 MCHC 31.6 L MPV 9.2 L Glucose 137 H 124 H Magnesium 2.6 H Total Bilirubin 0.2 L Total Protein 6.0 L Assessment and Plan Assessment: * Syncopal spell, unclear cause. There was no prior warning and it happened while sitting. Patient does not know how long he was out for as there was no witness available. Patient had diarrhea 4 times the day prior, therefore syncope is a possibility. Patient denies any tongue bite or loss of control of urine with it. * Abnormal CT head with evidence of old stroke in the right parietal region. Patient denies any history of strokes or TIA. * Depression Plan: * Patient to undergo syncope/TIA workup * Check EEG rule out any epileptiform activity. * Carotid Doppler, rule out stenosis. * Agree with checking 2D echo rule out any embolic source. * Hemoglobin A1c * Lipid panel * Check UA, rule out UTI * Orthostatics stella UTI.cked in the hospital was negative. * Consider 30-day event monitor to rule out any arrhythmia. * Neurology will follow. Thank you for the consult.
--- NOTE | 2024-03-24 18:29 | P.PN ---
Subjective Progress Note Date: 03/24/24 Subjective: [Patient seen at bedside. No significant overnight events.] 73-year-old male with a past medical history of asthma, COPD, cancer (prostate and melanoma in remission), dyslipidemia, KEVIN, sleep apnea (not on BiPAP) presented to the ED with 1 episode of syncope followed by another episode of n ear syncope. Patient also developed headache en route to emergency department and had 2 episodes of diarrhea the previous day. Patient underwent imaging in the ED which ruled out any masses but did show a prior ischemia of undetermined age. Vitals are stable. Laboratory workup was insignificant and within normal limits. Patient was admitted for further workup of syncope which included an echocardiogram that was unchanged from his previous echo earlier this year. While in the hospital, patient did not have further episodes of syncope. Patient's headache also resolved after administration of Toradol. Patient has not had a bowel movement Pertinent positives and negatives discussed above, a complete review of systems was preformed and all the other sytems were negative. Vitals Signs Reveiwed. General: non toxic, no distress, appears at stated age, normal weight Derm: no unusual rashes/lesions, warm Head: atraumatic, normocephalic, symmetric Eyes: EOMI, no lid lag, anicteric sclera, pupils equal round reactive to light ENT: Nose and ears atraumatic Neck: No cervical lymphadenopathy, trachea midline, supple Mouth: no lip lesion, mucus membranes moist Cardiovascular: S1S2 reg, no murmur, positive dorsalis pedis pulse bilateral, no edema Lungs: Decreased air entry bilaterally, no rhonchi, no rales, no accessory muscle use Abdominal: soft, nontender to palpation, no guarding Ext: muscle strength 5 out of 5 in all 4 extremities grossly, no gross muscle atrophy, no contractures, Neuro: CN II-XI grossly intact, no gross focal neuro deficits Psych: Alert, oriented, appropriate affect Data Reveiwed Today: Patient Labs: [Sodium 139, potassium 4.3, chloride 103, BUN 18.8, creatinine 1.1, WBC 9.85, hemoglobin 13, MCV 88.2, MCHC 31.6, MPV 9.2, glucose 124, T. bili 8.2, total protein 6.] Imaging: [Pending echo] Assesment: 73-year-old male with a past medical history of asthma, COPD, cancer (prostate melanoma both in remission), dyslipidemia, OA, sleep apnea (not on BiP AP) presented to the ED with 1 episode of syncope followed by another episode of near syncope. Patient being worked up for syncope with unknown etiology. Plan: Syncopal episode with unknown etiology: Orthostatic vs. vasovagal vs. cardiac vs. medication vs. neurological Patient had an ECG which showed NSR without axis deviation and a CXR which showed no acute cardiopulmonary process Patient received cardiac workup in that included an echo and pharmacological stress test which the patient states came back normal (normally sees Dr. Andrews.) Patient will receive new cardio workup including echo to rule out cardiac etiology of syncope Solifenacin succinate, trazodone, and mirabegron held as either could be source of orthostatic BMP shows no gross metabolic derangements Orthostatics came back normal CT head showed no masses, and minor right parietal ischemia. - continue on tele, fall precautions and neurochecks Pending echo Follow-up EEG, carotid Doppler Follow-up hemoglobin A1c, lipid panel, and UA to rule out UTI Headache: Resolved Patient initially started feeling headache between transit and arrival at the emergency department Patient rates the headache as a 9 out of 10 pain, patient states his headaches normally feel about a 6 out of 10 for pain Patient admits to generalized weakness but denied numbness tingling, slurred speech, or facial drooping - tylenol PRN Diarrhea: Patient started having diarrhea 1 day ago and has had 2 episodes since He has not noticed any blood in the diarrhea Labs show no gross metabolic derangement from diarrhea, patient currently receiving normal saline but will discontinue if orthostatics come back normal. Chronic: Cancer (prostate and melanoma both in remission), asthma, COPD, dyslipidemia, OA, sleep apnea (not on BiPAP), depression, overactive bladder - patient not on any inhalers at home or statin F sodium chloride at 75 cc/hr E none N heart healthy diet A normally walks unassisted at home DVT ppx: wait for CT head Code Status: Full code Anticipated discharge place: To home Anticipated discharge time: Pending clinical course, potentially tomorrow (03/24) I have seen and evaluated the patient today. Discussed with the resident and agree with the residents finding and plan as documented in the resident's note. No more dizziness. Ambulating freely. Syncopal episode and near syncope happened when he bent over. He reports nausea, diaphoresis and palpitations prior to syncope. Does not want to take ASA and Lipitor. Syncope: Likely vasovagal. Troponins negative and ACS ruled out. EKG NSR. Sep/Oct stress negative per patient. Orthostats negative. Echo pending. Fall precautions. Telemetry monitoring. Cardiology and Neurology consults. Remote CVA: CT head remote right parietal cortical infarct. Discussed with patient regarding starting ASA and Lipitor he is refusing at this time. Neurology recommends carotid doppler, A1c, Lipid panel, EEG, UA, 30 day event monitor. Diarrhea: Resolved. Overactive bladder: Restart Mirabegron and Solifenacin. PTSD: Trazadone 150 mg PO QHS. Chronic: Asthma/COPD not in acute exacerbation Cancer (prostate melanoma both in remission) Dyslipidemia Osteoarthritis Sleep apnea Objective - Vital Signs Vital signs: Vital Signs Temp 97.5 F L 03/24/24 17:38 Pulse 82 03/24/24 17:38 Resp 18 03/24/24 17:38 BP 128/66 03/24/24 17:38 Pulse Ox 96 03/24/24 17:38 FiO2 Intake & Output 03/23/24 03/24/24 03/24/24 18:59 06:59 18:59 Output Total 300 Balance -300 Weight 122.47 kg Output: Urine 300 - Labs CBC & Chem 7: 03/24/24 08:11 03/24/24 08:11 Labs: Abnormal Lab Results - Last 24 Hours (Table) 03/24/24 03/24/24 Range/Units 08:11 08:11 MCHC 31.6 L (32.0-37.0) g/dL MPV 9.2 L (9.5-12.2) FL Glucose 124 H (70-110) mg/dL Total Bilirubin 0.2 L (0.3-1.2) mg/dL Total Protein 6.0 L (6.2-8.2) g/dL
--- NOTE | 2024-03-24 19:51 | US ---
EXAMINATION TYPE: US carotid duplex BILAT DATE OF EXAM: 03/24/2024 COMPARISON: NONE CLINICAL INDICATION: Male, 73 years old with history of Syncope, old stroke; Patient states dizziness and blacked out TECHNIQUE: Carotid duplex ultrasound examination. Indirect Doppler criteria was utilized. FINDINGS: EXAM MEASUREMENTS: RIGHT: Peak Systolic Velocity (PSV) cm/sec ----- Right CCA: 92.2 ----- Right ICA: 89.9 ----- Right ECA: 142 ICA/CCA ratio: 1.0 RIGHT: End Diastole cm/sec ----- Right CCA: 12.3 ----- Right ICA: 24.2 ----- Right ECA: 13.1 LEFT: Peak Systolic Velocity (PSV) cm/sec ----- Left CCA: 131 ----- Left ICA: 64.8 ----- Left ECA: 149 ICA/CCA ratio: 0.5 LEFT: End Diastole cm/sec ----- Left CCA: 14.2 ----- Left ICA: 0.0 ----- Left ECA: 12.3 VERTEBRALS (direction of flow): Right Vertebral: Antegrade Left Vertebral: Cannot visualize due to neck girth Rhythm: Normal PLATE SENSITIZER NOTES: Limited exam due to neck girth and vessels moving with breathing. Slightly eleva willian velocities seen within bilateral ECA and left CCA. No plaque seen . IMPRESSION: Moderate elevated velocities within the internal carotid arteries could indicate narrowing between 50 and 69% of the bilateral bifurcations. There is some limitation due to patient body habitus. Criteria for Assigning % of Stenosis / Diameter reduction (Estimation based on the indirect measurements of the internal carotid artery velocities (ICA PSV). 1. Normal (no stenosis)=ICA PSV < 125 cm/s: ratio < 2.0: ICA EDV<40 cm/s. 2. Less than 50% stenosis=ICA PSV < 125 cm/s: ratio < 2.0: ICA EDV<40 cm/s. 3. 50 to 69% stenosis=ICA PSV of 125 to 230 cm/s: ration 2.0 ? 4.0: ICA EDV 40-100 cm/s. 4. Greater than 70% stenosis to near occlusion= ICA PSV > 230 cm/s: ratio > 4.0: ICA EDV > 100 cm/s. 5. Near occlusion= ICA PSV velocities may be low or undetectable: variable ratio and ICA EDV. 6. Total occlusion=unable to detect flow.
[2024-03-24] MEDS: KETOROLAC 15 MG/ML 1 ML VIAL IVP STA (21:19)
--- NOTE | 2024-03-24 22:48 | EEG ---
ELECTROENCEPHALOGRAM REPORT PREAMBLE: This is a 73-year-old male who has a syncopal spell. He has history of CVA. EEG FINDINGS: This is a 21-channel digital EEG recorded with video component, utilizing 10/20 international system with referential and bipolar montages. Background consists of slightly suppressed, low amplitude 8 to 9 hertz alpha activity seen in posterior head region. Background is posterior dominant and seems to be slightly reactive to eye opening and closing. Photic driving response was not clearly seen. Drowsiness was seen with appearance of bilaterally symmetric theta frequency rhythm. Deeper stages of sleep were not seen. No focal or generalized epileptiform activity was seen. EKG channel showed no obvious arrhythmia. IMPRESSION: This is a normal awake and drowsy EEG. No focal, lateralized, or epileptiform activity was seen. MMODL / IJN: [id number] /
--- NOTE | 2024-03-25 08:00 | CA ---
Transthoracic Echo Report Name: Natan Calzada Age: 73 Gender: M : 1950 Exam Date: 03/24/2024 15:12 Exam Location: [facility] Ht (in): 72 Wt (lb): 270 Ordering Physician: Alvin Delong MD Attending/Referring Phys: Channel Process Supervisor Zuly Wright RDCS Procedure CPT: Indications: Syncope Cardiac Hx: Technical Quality: Very technically difficult study Contrast 1: Definity Total Dose (mL): 2 Contrast 2: Total Dose (mL): MEASUREMENTS (Male / Female) Normal Values 2D ECHO LV Diastolic Diameter PLAX 2.9 cm 4.2 - 5.9 / 3.9 - 5.3 cm LV Systolic Diameter PLAX 2.1 cm IVS Diastolic Thickness 0.8 cm 0.6 - 1.0 / 0.6 - 0.9 cm LVPW Diastolic Thickness 1.0 cm 0.6 - 1.0 / 0.6 - 0.9 cm LV Relative Wall Thickness 0.6 LVOT Diameter 2.4 cm LV Diastolic Volume MOD BP 100.4 cm??? 67 - 155 / 56 - 104 cm??? LV Systolic Volume MOD BP 44.6 cm??? 22 - 58 / 19 - 49 cm??? LV Ejection Fraction MOD BP 55.5 % >= 55 % LV Cardiac Index MOD BP 1361.5 cm???/min???m??? LV Diastolic Volume MOD 4C 104.3 cm??? LV Systolic Volume MOD 4C 42.6 cm??? LV Ejection Fraction MOD 4C 59.1 % LV Cardiac Index MOD 4C 1505.7 cm???/min???m??? LV Diastolic Length 4C 9.1 cm LV Systolic Length 4C 8.2 cm LV Diastolic Volume MOD 2C 93.2 cm??? LV Systolic Volume MOD 2C 43.0 cm??? LV Ejection Fraction MOD 2C 53.8 % LV Cardiac Index MOD 2C 1225.4 cm???/min???m??? LV Diastolic Length 2C 8.7 cm LV Systolic Length 2C 7.5 cm LA Volume 56.8 cm??? 18 - 58 / 22 - 52 cm??? LA Volume Index 22.4 cm???/m??? 16 - 28 cm???/m??? Ascending Aorta Diameter 3.3 cm DOPPLER AV Peak Velocity 109.4 cm/s AV Peak Gradient 4.8 mmHg AV Mean Velocity 75.8 cm/s AV Mean Gradient 2.6 mmHg AV Velocity Time Integral 22.9 cm LVOT Peak Velocity 96.8 cm/s LVOT Peak Gradient 3.7 mmHg LVOT Velocity Time Integral 19.5 cm LVOT Stroke Volume 87.1 cm??? LVOT Stroke Volume Index 36.0 ml/m??? LVOT Cardiac Index 2126.1 cm???/min???m??? AV Area Cont Eq vti 3.8 cm??? AV Area Cont Eq pk 4.0 cm??? MV Area PHT 3.2 cm??? Mitral E Point Velocity 67.5 cm/s Mitral A Point Velocity 80.2 cm/s Mitral E to A Ratio 0.8 MV Deceleration Time 238.3 ms PV Peak Velocity 125.9 cm/s PV Peak Gradient 6.3 mmHg FINDINGS Left Ventricle Left ventricular ejection fraction is estimated at 55-60 %. Left ventricular cavity size normal. Left ventricular wall thickness normal. No obvious regional wall motion abnormalities. Right Ventricle Normal right ventricular size and function. Unable to estimate the right ventricular systolic pressure. Right Atrium Normal right atrial size. Left Atrium Normal left atrial size. Mitral Valve Structurally normal mitral valve. No mitral stenosis, regurgitation or prolapse. Aortic Valve Trileaflet aortic valve. No aortic valve stenosis or regurgitation. Tricuspid Valve Structurally normal tricuspid valve. No tricuspid stenosis, regurgitation or prolapse. Pulmonic Valve Structurally normal pulmonic valve. No pulmonic stenosis. Trace pulmonic regurgitation. Pericardium No pericardial effusion. Aorta Normal size aortic root and proximal ascending aorta. CONCLUSIONS Left ventricular ejection fraction 55-60% No mitral regurgitation No tricuspid regurgitation No pericardial effusion Previewed by: Dr. Huber Cutler DO (Electronically Signed) Final Date: 25 March 2024 07:59
[2024-03-25 08:12] VITALS: BP 134/73; PULSE 66; RESP 16; TEMP 98.1
[2024-03-25] MEDS: ACETAMINOPHEN TAB 500 MG TAB PO PRN (08:14)
--- NOTE | 2024-03-25 08:53 | P.PN ---
Subjective Progress Note Date: 03/25/24 Subjective: [Patient seen at bedside. No significant overnight events.] Pertinent positives and negatives discussed above, a complete review of systems was preformed and all the other sytems were negative. Vitals Signs Reveiwed. General: non toxic, no distress, appears at stated age, normal weight Derm: no unusual rashes/lesions, warm Head: atraumatic, normocephalic, symmetric Eyes: EOMI, no lid lag, anicteric sclera, pupils equal round reactive to light ENT: Nose and ears atraumatic Neck: No cervical lymphadenopathy, trachea midline, supple Mouth: no lip lesion, mucus membranes moist Cardiovascular: S1S2 reg, no murmur, positive dorsalis pedis pulse bilateral, no edema Lungs: Decreased air entry bilaterally, no rhonchi, no rales, no accessory muscle use Abdominal: soft, nontender to palpation, no guarding Ext: muscle strength 5 out of 5 in all 4 extremities grossly, no gross muscle atrophy, no contractures, Neuro: CN II-XI grossly intact, no gross focal neuro deficits Psych: Alert, oriented, appropriate affect Data Reveiwed Today: Patient Labs: WBC 9.4, RBC 4.63, hemoglobin 13, MCHC 31.6, RDW 14.1, platelet count 229, and MPV 7.7 Imaging: Carotid Doppler ultrasound: Moderate elevated velocities within internal carotid arteries which could indicate narrowing between 50 and 69% bilaterally. Echo:EF 55 to 60%, left ventricular cavity size normal, left ventricular wall thickness normal, no wall motion abnormalities. EEG: Normal awake and drowsy EEG. No focal, lateralized, or epileptiform activ ity was seen Assesment: 73-year-old male with a past medical history of asthma, COPD, cancer (prostate melanoma both in remission), dyslipidemia, OA, sleep apnea (not on BiPAP) presented to the ED with 1 episode of syncope followed by another episode of near syncope. Patient being worked up for syncope with unknown etiology. Plan: Syncopal episode with unknown etiology: Vasovagal vs. cardiac vs. medication Patient had an ECG which showed NSR without axis deviation and a CXR which showed no acute cardiopulmonary process Patient received cardiac workup in that included an echo and pharmacological stress test which the patient states came back normal (normally sees Dr. Andrews.) Echo showed EF of 55 to 60% with normal left ventricular cavity size and wall thickness EEG was normal, carotid Doppler showed 50 to 69% bilateral stenosis Follow-up hemoglobin A1c, lipid panel, and UA to rule out UTI Solifenacin succinate, trazodone, and mirabegron held as either could be source of orthostatic BMP shows no gross metabolic derangements Orthostatics came back normal CT head showed no masses, and minor right parietal ischemia. - continue on tele, fall precautions and neurochecks Headache: Resolved Patient initially started feeling headache between transit and arrival at the emergency department Patient rates the headache as a 9 out of 10 pain, patient states his headaches normally feel about a 6 out of 10 for pain Patient admits to generalized weakness but denied numbness tingling, slurred speech, or facial drooping - tylenol PRN Diarrhea: Resolved Patient started having diarrhea 1 day ago and has had 2 episodes since He has not noticed any blood in the diarrhea Labs show no gross metabolic derangement from diarrhea, patient currently receiving normal saline but will discontinue if orthostatics come back normal. Chronic: Cancer (prostate and melanoma both in remission), asthma, COPD, dyslipidemia, OA, sleep apnea (not on BiPAP), depression, overactive bladder - patient not on any inhalers at home or statin F sodium chloride at 75 cc/hr E none N heart healthy diet A normally walks unassisted at home DVT ppx: wait for CT head Code Status: Full code Anticipated discharge place: To home Anticipated discharge time: Pending clinical course, potentially today (03/25) I have seen and evaluated the patient today. Discussed with the resident and agree with the residents finding and plan as documented in the resident's note. Objective - Vital Signs Vital signs: Vital Signs Temp 98.1 F 03/25/24 07:00 Pulse 66 03/25/24 07:00 Resp 16 03/25/24 07:00 BP 134/73 03/25/24 07:00 Pulse Ox 95 03/25/24 07:00 FiO2 Intake & Output 03/24/24 03/25/24 03/25/24 18:59 06:59 18:59 Intake Total 0 Balance 0 Weight 122.47 kg Intake: Oral 0 Other: # Voids 1 - Labs CBC & Chem 7: 03/25/24 06:34 03/25/24 06:34 Labs: Abnormal Lab Results - Last 24 Hours (Table) 03/24/24 03/24/24 Range/Units 08:11 08:11 MCHC 31.6 L (32.0-37.0) g/dL MPV 9.2 L (9.5-12.2) FL Glucose 124 H (70-110) mg/dL Total Bilirubin 0.2 L (0.3-1.2) mg/dL Total Protein 6.0 L (6.2-8.2) g/dL
[2024-03-25 09:10] LABS: Basophils % (A) 0 %; Eosinophils # (A) 0.4 k/uL (0-0.7); Eosinophils % (A) 4 %; HCT 41.2 % (39.0-53.0); Lymphocytes % (A) 22 %; MCH 28.1 pg (25.0-35.0); MCHC 31.6 g/dL (31.0-37.0); MCV 88.9 fL (80.0-100.0); Mean Platelet Volume 7.7; Monocytes # (A) 0.5 k/uL (0-1.0); Monocytes % (A) 6 %; Neutrophils # (A) 6.3 k/uL (1.3-7.7); Neutrophils % (A) 67 %; Platelet Count 229 k/uL (150-450); RBC 4.63 m/uL (4.30-5.90); RDW 14.1 % (11.5-15.5); WBC 9.4 k/uL (3.8-10.6)
[2024-03-25 09:26] LABS: African American GFR (CKD) 88 (>60 ml/min/1.73 sqM); Anion Gap 4 mmol/L; Blood Urea Nitrogen 19 mg/dL (9-20); Carbon Dioxide 27 mmol/L (22-30); Chloride 106 mmol/L (98-107); Glucose 105 mg/dL (74-99); Non-African American GFR(CKD) 76 (>60 ml/min/1.73 sqM); Potassium 4.2 mmol/L (3.5-5.1); Sodium 137 mmol/L (137-145)
--- NOTE | 2024-03-25 11:01 | P.CRDCN ---
History of Present Illness Consult date: 03/25/24 Consult reason: sycope Chief complaint: syncope History of present illness: History of present illness: Patient is a pleasant 73-year-old male with significant past medical history of asthma, COPD, hyperlipidemia, sleep apnea not on CPAP who presented with syncope. He does follow with Dr. Andrews in the office. He reports that he was having diarrhea on 03/22 and then on Saturday he had an episode where he blacked out and woke up on the floor. He was then outside later that day and was bending over rolling up a cable when he developed pain in his lower back vision was closing in and he felt like he was going to pass out. His neighbor brought him to the emergency department. He has been evaluated by neurology. Carotid ultrasound shows 50-69% bilateral ICA stenosis. EEG was normal. Head CT negative for any acute findings. D-dimer was negative. Echocardiogram with EF 55-60%, no significant valve issues. Labs reviewed: Hemoglobin 13.0, potassium 4.2, creatinine 0.98, troponin negative x 3. He has been feeling well and has not had any further episodes of syncope. Denies any chest pain or pressure. He states he did have a recent stress test in the office back in October of this year. EKG shows normal sinus rhythm. REVIEW OF SYSTEMS: No fever or chills. No cough or expectoration. No diaphoresis. Patient denies headache, dizziness, blurred vision, double vision. Patient denies any stomach discomfort. No nausea, vomiting. No hematochezia. No hematemesis. Denies any black stools or blood in his stools. Denies dysuria or hematuria. No muscle weakness or numbness. No chest pain or pressure. Reports syncope. PHYSICAL EXAMINATION: This is a 73-year-old male in no apparent distress at the time of my examination. HEENT: Head is atraumatic, normocephalic. Pupils are equal, round. Sclerae anicteric. Conjunctivae are clear. Mucous membranes of the mouth are moist. Neck is supple. There is no jugular venous distention. No carotid bruit is heard. CHEST EXAMINATION: Lungs are clear to auscultation. No chest wall tenderness is noted on palpation or with deep breathing. HEART EXAMINATION: Heart regular rate and rhythm. S1, S2 heard. No murmurs, gallops or rub. ABDOMEN: Soft, nontender. Bowel sounds are heard. EXTREMITIES: 2+ peripheral pulses with no evidence of peripheral edema and no ca lf tenderness noted. NEUROLOGIC EXAMINATION: Patient is awake, alert and oriented x3. IMPRESSION AND PLAN: Syncope COPD Hyperlipidemia Sleep apnea not on CPAP Carotid stenosis, moderate bilateral ICA PLAN: Echo reviewed shows preserved EF no significant valve issues. No episodes seen on telemetry. Agree with outpatient event monitor. Symptoms likely vasovagal response. No further workup indicated at this time. Okay to discharge home from a cardiology standpoint and follow-up with Dr. Andrews in the office in 1-2 weeks. I am dictating on behalf of Dr. Huber Cutler's history/physical and assessment/plan. Past Medical History Past Medical History: Asthma, Cancer, COPD, Hyperlipidemia, Osteoarthritis (OA), Prostate Disorder, Sleep Apnea/CPAP/BIPAP Additional Past Medical History / Comment(s): Hx kidney stones. past hx. thoracic outlet syndrome, Colitis. hx. Prostate cancer. 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 pain @times, overactive bladder History of Any Multi-Drug Resistant Organisms: None Reported Past Surgical History: Adenoidectomy, Appendectomy, Bowel Resection, Cholecystectomy, Prostate Surgery, Tonsillectomy Additional Past Surgical History / Comment(s): Bilateral rib resection, COLONOSCOPY, EGD, BILATERAL CATARACTS. Prostatectomy Past Anesthesia/Blood Transfusion Reactions: No Reported Reaction Past Psychological History: PTSD Smoking Status: Former smoker Past Alcohol Use History: None Reported Additional Past Alcohol Use History / Comment(s): SMOKED ABOUT 1 YEAR, 50 YEARS AGO. Past Drug Use History: None Reported - Past Family History Sister(s) Family Medical History: Cancer Additional Family Medical History / Comment(s): Breast cancer. Mother Family Medical History: Cancer Additional Family Medical History / Comment(s): Grandfather had Cardiac issues and colon cancer. Grandmother had cardiac issues. Medications and Allergies Home Medications Medication Instructions Recorded Confirmed Type Cetirizine HCl 10 mg PO DAILY 02/20/21 03/23/24 History FLUoxetine HCL [PROzac] 40 mg PO DAILY 04/20/21 03/23/24 History allopurinoL [Zyloprim] 300 mg PO DAILY 04/20/21 03/23/24 History Carboxymethylcellulose Sodium 1 drop BOTH EYES QID PRN 03/23/24 03/23/24 History [Refresh Tears] Mirabegron [Myrbetriq] 50 mg PO DAILY 03/23/24 03/23/24 History Solifenacin Succinate 10 mg PO DAILY 03/23/24 03/23/24 History buPROPion XL [Wellbutrin XL] 150 mg PO DAILY 03/23/24 03/23/24 History traZODone HCL [Desyrel] 150 mg PO HS 03/23/24 03/23/24 History Allergies Allergy/AdvReac Type Severity Reaction Status Date / Time Iodinated Contrast Media Allergy Unknown Verified 03/23/24 16:02 [Iodinated Contrast Media - IV Dye] morphine AdvReac causes Verified 03/23/24 16:02 vitals to drop MRI Contrast Allergy Shaking Uncoded 05/30/22 18:40 Physical Exam Vitals: Vital Signs Temp Pulse Pulse Resp BP BP BP 03/25/24 08:00 66 16 03/25/24 07:00 98.1 F 66 16 134/73 03/25/24 03:14 98.3 F 71 18 131/66 03/25/24 02:00 98.3 F 71 18 03/24/24 21:20 90 125/68 03/24/24 20:50 91 135/74 03/24/24 20:20 87 136/86 03/24/24 20:05 97.8 F 87 145/74 03/24/24 20:00 98.4 F 74 18 124/71 03/24/24 17:38 97.5 F L 82 18 128/66 03/24/24 11:44 97.6 F 71 17 130/52 Pulse Ox 03/25/24 08:00 03/25/24 07:00 95 03/25/24 03:14 97 03/25/24 02:00 03/24/24 21:20 92 L 03/24/24 20:50 92 L 03/24/24 20:20 96 03/24/24 20:05 94 L 03/24/24 20:00 95 03/24/24 17:38 96 03/24/24 11:44 95 Intake and Output 03/24/24 03/25/24 03/25/24 22:59 06:59 14:59 Intake Total 0 Output Total 350 Balance -350 Intake: Oral 0 Output: Urine 350 Other: Voiding Method Toilet # Voids 1 1 Weight 122.47 kg Results 03/25/24 06:34 03/25/24 06:34 Cardiac Enzymes 03/24/24 Range/Units 08:11 AST 15 (14-35) U/L CBC 03/25/24 Range/Units 06:34 WBC 9.4 (3.8-10.6) k/uL RBC 4.63 (4.30-5.90) m/uL Hgb 13.0 (13.0-17.5) gm/dL Hct 41.2 (39.0-53.0) % Plt Count 229 (150-450) k/uL Comprehensive Metabolic Panel 03/24/24 03/25/24 Range/Units 08:11 06:34 Sodium 139 137 (135-145) mmol/L Potassium 4.3 4.2 (3.5-5.5) mmol/L Chloride 103 106 (96-109) mmol/L Carbon Dioxide 27.2 27 (21.6-31.8) mmol/L BUN 18.8 19 (9.0-27.0) mg/dL Creatinine 1.1 0.98 (0.6-1.5) mg/dL Glucose 124 H 105 H (70-110) mg/dL Calcium 8.8 9.0 (8.7-10.3) mg/dL AST 15 (14-35) U/L ALT 18 (10-49) U/L Alkaline Phosphatase 77 (41-126) U/L Total Protein 6.0 L (6.2-8.2) g/dL Albumin 3.9 (3.8-4.9) g/dL Current Medications Generic Name Dose Route Start Last Admin Trade Name Freq PRN Reason Stop Dose Admin Acetaminophen 1,000 mg 03/23/24 20:28 03/25/24 08:14 Acetaminophen Tab 500 Mg Tab PO 1,000 mg Q6HR PRN Administration Fever and/ or Pain Allopurinol 300 mg 03/23/24 16:00 03/25/24 08:14 Allopurinol 300 Mg Tab PO 300 mg DAILY TWYLA Administration Bupropion HCl 150 mg 03/23/24 16:00 03/25/24 08:15 Bupropion Xl 150 Mg Tab.Er.24h PO 150 mg DAILY TWYLA Administration Fluoxetine HCl 40 mg 03/23/24 16:00 03/25/24 08:15 Fluoxetine Hcl 20 Mg Cap PO 40 mg DAILY TWYLA Administration Sodium Chloride 1,000 mls @ 75 mls/hr 03/23/24 15:30 03/25/24 08:15 Saline 0.9% IV 75 mls/hr .[id number] TWYLA Administration Loratadine 10 mg 03/24/24 09:00 03/25/24 08:14 Loratadine 10 Mg Tab PO 10 mg DAILY TWYLA Administration Naloxone HCl 0.2 mg 03/23/24 15:28 Naloxone 0.4 Mg/Ml 1 Ml Vial IV Q2M PRN Opioid Reversal Non-Formulary Medication 50 mg 03/23/24 16:00 03/25/24 08:15 Mirabegron [Myrbetriq] PO Not Given DAILY TWYLA Intake and Output 03/24/24 03/25/24 03/25/24 22:59 06:59 14:59 Intake Total 0 Output Total 350 Balance -350 Intake: Oral 0 Output: Urine 350 Other: Voiding Method Toilet # Voids 1 1 Weight 122.47 kg 03/25/24 06:34 03/25/24 06:34
[2024-03-25] MEDS: KETOROLAC 15 MG/ML 1 ML VIAL IVP STA (11:09)
--- NOTE | 2024-03-25 11:51 | P.GSCN ---
History of Present Illness Consult date: 03/25/24 Reason for Consult: Carotid stenosis, syncope Requesting physician: Fidencio Wang History of present illness: This is a pleasant 73-year-old male who presented to the emergency department 2 days ago after having a syncopal episode. Patient states that he bent over and when he got up he felt like he was going to blackout he was able to walk himself to his truck and sit down and put the air conditioning on and then he felt better. States he never lost consciousness, no focal deficits such as vision loss, difficulty speaking or weakness in his upper or lower extremities. Past medical history includes asthma, COPD, prostate cancer and melanoma, dyslipidemia and obstructive sleep apnea. 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 Had a normal EEG and also had a carotid ultrasound for which vascular surgery was consulted for carotid stenosis. Patient currently denies any weakness, no focal deficits, no shortness of breath or chest pain, he denies any dizziness or syncopal episodes. Review of Systems A 14 point review systems was completed all pertinent positives and negatives as stated in the HPI. Past Medical History Past Medical History: Asthma, Cancer, COPD, Hyperlipidemia, Osteoarthritis (OA), Prostate Disorder, Sleep Apnea/CPAP/BIPAP Additional Past Medical History / Comment(s): Hx kidney stones. past hx. thoracic outlet syndrome, Colitis. hx. Prostate cancer. 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 pain @times, overactive bladder History of Any Multi-Drug Resistant Organisms: None Reported Past Surgical History: Adenoidectomy, Appendectomy, Bowel Resection, Cholecystectomy, Prostate Surgery, Tonsillectomy Additional Past Surgical History / Comment(s): Bilateral rib resection, COLONOSCOPY, EGD, BILATERAL CATARACTS. Prostatectomy Past Anesthesia/Blood Transfusion Reactions: No Reported Reaction Past Psychological History: PTSD Smoking Status: Former smoker Past Alcohol Use History: None Reported Additional Past Alcohol Use History / Comment(s): SMOKED ABOUT 1 YEAR, 50 YEARS AGO. Past Drug Use History: None Reported - Past Family History Sister(s) Family Medical History: Cancer Additional Family Medical History / Comment(s): Breast cancer. Mother Family Medical History: Cancer Additional Family Medical History / Comment(s): Grandfather had Cardiac issues and colon cancer. Grandmother had cardiac issues. Medications and Allergies Home Medications Medication Instructions Recorded Confirmed Type Cetirizine HCl 10 mg PO DAILY 02/20/21 03/23/24 History FLUoxetine HCL [PROzac] 40 mg PO DAILY 04/20/21 03/23/24 History allopurinoL [Zyloprim] 300 mg PO DAILY 04/20/21 03/23/24 History Carboxymethylcellulose Sodium 1 drop BOTH EYES QID PRN 03/23/24 03/23/24 History [Refresh Tears] Mirabegron [Myrbetriq] 50 mg PO DAILY 03/23/24 03/23/24 History Solifenacin Succinate 10 mg PO DAILY 03/23/24 03/23/24 History buPROPion XL [Wellbutrin XL] 150 mg PO DAILY 03/23/24 03/23/24 History traZODone HCL [Desyrel] 150 mg PO HS 03/23/24 03/23/24 History Allergies Allergy/AdvReac Type Severity Reaction Status Date / Time Iodinated Contrast Media Allergy Unknown Verified 03/23/24 16:02 [Iodinated Contrast Media - IV Dye] morphine AdvReac causes Verified 03/23/24 16:02 vitals to drop MRI Contrast Allergy Shaking Uncoded 05/30/22 18:40 Surgical - Exam Vital Signs Temp Pulse Resp BP Pulse Ox 97.4 F L 90 20 110/68 93 L 03/23/24 11:56 03/23/24 11:56 03/23/24 11:56 03/23/24 11:56 03/23/24 11:56 General appearance: The patient is alert, oriented, appears in no acute distress. Morbidly obese. HET: Head is normocephalic and atraumatic. Pupils are equal and reactive. Neck: Supple. No carotid bruit. Heart: Regular. Lungs: Equal expansion, normal respiratory effort. Abdomen: Soft, nontender, nondistended. Extremities: Normal skin color and turgor. Neurological: No focal deficits. Strength and sensation are grossly intact. Results - Labs 03/25/24 06:34 03/25/24 06:34 Abnormal Lab Results - Last 24 Hours (Table) 03/25/24 Range/Units 06:34 Glucose 105 H (74-99) mg/dL Diabetes panel 03/25/24 Range/Units 06:34 Sodium 137 (137-145) mmol/L Potassium 4.2 (3.5-5.1) mmol/L Chloride 106 (98-107) mmol/L Carbon Dioxide 27 (22-30) mmol/L BUN 19 (9-20) mg/dL Creatinine 0.98 (0.66-1.25) mg/dL Glucose 105 H (74-99) mg/dL Calcium 9.0 (8.4-10.2) mg/dL Calcium panel 03/25/24 Range/Units 06:34 Calcium 9.0 (8.4-10.2) mg/dL Pituitary panel 03/25/24 Range/Units 06:34 Sodium 137 (137-145) mmol/L Potassium 4.2 (3.5-5.1) mmol/L Chloride 106 (98-107) mmol/L Carbon Dioxide 27 (22-30) mmol/L BUN 19 (9-20) mg/dL Creatinine 0.98 (0.66-1.25) mg/dL Glucose 105 H (74-99) mg/dL Calcium 9.0 (8.4-10.2) mg/dL Adrenal panel 03/25/24 Range/Units 06:34 Sodium 137 (137-145) mmol/L Potassium 4.2 (3.5-5.1) mmol/L Chloride 106 (98-107) mmol/L Carbon Dioxide 27 (22-30) mmol/L BUN 19 (9-20) mg/dL Creatinine 0.98 (0.66-1.25) mg/dL Glucose 105 H (74-99) mg/dL Calcium 9.0 (8.4-10.2) mg/dL - Imaging Comments: Carotid duplex right ICA PSV 89.9, ICA/CCA ratio 1.0. Left ICA PSV 64.8, ICA/CCA ratio 0.5. Report reads impression as moderate elevated velocities within the internal carotid arteries could indicate narrowing between 50 and 69% of bilateral bifurcations. There is some limitation due to patient body habitus. Carotid duplex independently reviewed and there is less than 50% bilateral ICA carotid stenosis by PSV. 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 Assessment and Plan Assessment: 1. Syncope 2. No hemodynamically significant carotid stenosis. Bilateral ICA stenosis less than 50% by PSV Plan: 1. Carotid duplex independently reviewed and there is no significant ICA stenosis. Bilateral ICA stenosis less than 50%. 2. There is no indication for any vascular surgical intervention. 3. Rest of medical management per primary medical team Thank you for this consultation, we will sign off at this time. The impression and plan of care has been dictated as directed. Dr. Yuen I performed a history and examination of this patient, discussed the same with the dictator. I agree with the dictator's note ,documented as a scribe. Any additional findings or plans will be noted.
[2024-03-25] MEDS: ASPIRIN 81 MG PO SCH (12:56)
--- NOTE | 2024-03-25 16:29 | P.DS ---
Providers Date of admission: 03/23/24 15:30 Discharge Diagnosis: Syncopal episode with unknown etiology: Vasovagal versus cardiac versus medicati on Headache Diarrhea Hospital Course: 73-year-old male with a past medical history of asthma, COPD, cancer (prostate melanoma both in remission), dyslipidemia, OA, sleep apnea (not on BiPAP) prese nted to the ED with 1 episode of syncope followed by another episode of near syncope. In the ED patient received chest x-ray showing chronic changes including pleural-parenchymal scarring but no acute processes seen. In addition patient received ECG which showed normal sinus rhythm and a CT head which showed no masses or acute bleed but did show remote right parietal cortical infarct. Labs in the ED were within normal limits. Vital signs within normal limits. Patient was admitted to the floors for further workup of syncope with unknown etiology. To rule out neurological causes of the syncope patient received EEG which was normal. To rule out cardiac causes of the syncope patient received echo which showed 55 to 60% EF with normal left ventricular cavity size and wall thickness. Patient also received carotid Doppler which showed 50% to 69% bilateral stenosis. Patient was seen by vascular surgery who signed off as they did not suspect the stenosis was the cause of the syncope. Patient also had headache and diarrhea while inpatient but both resolved while in the hospital. While in the hospital patient had no further syncopal events. Patient is being discharged to home. Patient is recommended to follow-up with his PCP, guard sergeant, neurologist, and vascular surgeon. Patient has been set up with event monitor and will wear it for 30 days outpatient. Pt seen and examined at bedside: No significant overnight events. Vital signs reveiwed and stable: General: non toxic, no distress, appears at stated age, normal weight Derm: no unusual rashes/lesions, warm Head: atraumatic, normocephalic, symmetric Eyes: EOMI, no lid lag, anicteric sclera, pupils equal round reactive to light ENT: Nose and ears atraumatic Neck: No cervical lymphadenopathy, trachea midline, supple Mouth: no lip lesion, mucus membranes moist Cardiovascular: S1S2 reg, no murmur, positive dorsalis pedis pulse bilateral, no edema Lungs: Decreased air entry bilaterally, no rhonchi, no rales, no accessory muscle use Abdominal: soft, nontender to palpation, no guarding Ext: muscle strength 5 out of 5 in all 4 extremities grossly, no gross muscle atrophy, no contractures, Neuro: CN II-XI grossly intact, no gross focal neuro deficits Psych: Alert, oriented, appropriate affect A total of [] minutes were spent preparing this complex discarge summary. Patient was discharged on []. Attending physician: Alvin Delong MD Consults: 03/23/24 15:28 Consult Physician Routine Consulting Provider: Philippe Yancey Consult Reason/Comments: syncope Do you want consulting provider notified?: Yes 03/23/24 23:03 Consult Physician Routine Consulting Provider: Jorgito Vazquez Consult Reason/Comments: remote parietal infarct , syncope Do you want consulting provider notified?: Yes 03/25/24 08:58 Consult Physician Routine Consulting Provider: Edwina Yuen Consult Reason/Comments: carotid stenosis syncope Do you want consulting provider notified?: Yes Primary care physician: [facility] Course: I have seen and evaluated the patient today. Discussed with the resident and agree with the residents finding and plan as documented in the resident's note. No more dizziness. Ambulating freely. EEG was negative. Echo EF 55-60%. Carotid doppler seemed to shows 50-69% bilateral internal carotid stenosis. Vascular surgery consulted, images reviewed, stenosis is not significant, no further workup. Discussed with Dr. Vazquez, michelle ASA and 30 day event monitor on discharge. Follow up with PCP within 1-2 days. Follow up with Vascular surgery, Cardiology and Neurology within 1 week of discharge. Discharge Diagnosis: Syncope Remote CVA Diarrhea Overactive bladder PTSD Chronic: Asthma/COPD not in acute exacerbation Cancer (prostate melanoma both in remission) Dyslipidemia Osteoarthritis Sleep apnea Patient Condition at Discharge: Stable Plan - Discharge Summary New Discharge Prescriptions: New Aspirin 81 mg PO DAILY #30 tab Continue Cetirizine HCl 10 mg PO DAILY allopurinoL [Zyloprim] 300 mg PO DAILY traZODone HCL [Desyrel] 150 mg PO HS Solifenacin Succinate 10 mg PO DAILY FLUoxetine HCL [PROzac] 40 mg PO DAILY buPROPion XL [Wellbutrin XL] 150 mg PO DAILY Mirabegron [Myrbetriq] 50 mg PO DAILY Carboxymethylcellulose Sodium [Refresh Tears] 1 drop BOTH EYES QID PRN PRN Reason: Dry Eye(S) Discharge Medication List Cetirizine HCl 10 mg PO DAILY 02/20/21 [History] FLUoxetine HCL [PROzac] 40 mg PO DAILY 04/20/21 [History] allopurinoL [Zyloprim] 300 mg PO DAILY 04/20/21 [History] Carboxymethylcellulose Sodium [Refresh Tears] 1 drop BOTH EYES QID PRN 03/23/24 [History] Mirabegron [Myrbetriq] 50 mg PO DAILY 03/23/24 [History] Solifenacin Succinate 10 mg PO DAILY 03/23/24 [History] buPROPion XL [Wellbutrin XL] 150 mg PO DAILY 03/23/24 [History] traZODone HCL [Desyrel] 150 mg PO HS 03/23/24 [History] Aspirin 81 mg PO DAILY #30 tab 03/25/24 [Rx] Follow up Appointment(s)/Referral(s): Mitchel Andrews MD [Medical Doctor] - 05/05/24 3:15 pm Edwina Yuen DO [STAFF PHYSICIAN] - 1 Week Alberto Ramirez DO [STAFF PHYSICIAN] - 1 Week [facility] [Primary Care Provider] - 1-2 days Activity/Diet/Wound Care/Special Instructions: Diet: Cardiac Follow up with PCP or Neurology for carotid doppler and MRI brain. Discharge Disposition: HOME SELF-CARE
--- NOTE | 2024-03-26 10:09 | P.PN ---
Subjective Progress Note Date: 03/25/24 Patient was seen for a follow-up. Patient is laying comfortably in the bed. He states he is "doing good". No new concerns. Objective - Vital Signs Vital signs: Vital Signs Temp 98.1 F 03/25/24 07:00 Pulse 66 03/25/24 08:00 Resp 16 03/25/24 08:00 BP 134/73 03/25/24 07:00 Pulse Ox 95 03/25/24 07:00 FiO2 Intake & Output 03/24/24 03/25/24 03/25/24 18:59 06:59 18:59 Intake Total 0 Output Total 350 Balance -350 Weight 122.47 kg Intake: Oral 0 Output: Urine 350 Other: Voiding Method Toilet # Voids 1 - Exam Unchanged. - Labs CBC & Chem 7: 03/25/24 06:34 03/25/24 06:34 Labs: Abnormal Lab Results - Last 24 Hours (Table) 03/25/24 Range/Units 06:34 Glucose 105 H (74-99) mg/dL Assessment and Plan Assessment: * Syncopal spell, unclear cause. There was no prior warning and it happened while sitting. Patient does not know how long he was out for as there was no witness available. Patient had diarrhea 4 times the day prior, therefore syncope is a possibility. Patient denies any tongue bite or loss of control of urine with it. * Abnormal CT head with evidence of old stroke in the right parietal region. Patient denies any history of strokes or TIA. * Depression Plan: * Patient to undergo syncope/TIA workup * EEG was normal awake and drowsy. No focal, lateralized or epileptiform activity was seen. * Carotid Doppler, revealed moderate elevated velocities within the internal carotid arteries could indicate narrowing between 50 and 69% of the bilateral bifurcations. There is some limitation due to patient body habitus. Right vertebral artery with antegrade flow. Left vertebral artery cannot be visualized due to neck girth. * Vascular surgery input appreciated. They believe bilateral ICA stenosis is less than 50% on the review of the ultrasound. No indication for any vascular surgical intervention. * Patient to be started on aspirin 81 mg daily because of evidence of mild carotid stenosis and evidence of old CVA. * 2D echo revealed left ventricular wall thickness is normal. LVEF is normal 55 to 60%. No obvious regional wall motion abnormalities. Normal left atrial size. No valvular abnormalities. * Hemoglobin A1c 6.1 cholesterol * Lipid panel 164, LDL 99, HDL 41, triglycerides 120. * UA order canceled by primary. * Orthostatics checked were negative. * Consider 30-day event monitor to rule out any arrhythmia. * Neurologically clear for discharge.
== END 2024-03-25 13:37 | disposition home or self-care (01) ==
LOC: EC 11:36 → 6NMEDSUR 15:30
PROVIDERS: ADMIT Student in an Organized Health Care Education/Training Program; ATTEND Student in an Organized Health Care Education/Training Program
DX: R55 Syncope and collapse (principal); R51.9 Headache, unspecified; R19.7 Diarrhea, unspecified; J44.9 Chronic obstructive pulmonary disease, unspecified; E78.5 Hyperlipidemia, unspecified; G47.33 Obstructive sleep apnea (adult) (pediatric); N32.81 Overactive bladder; F43.10 Post-traumatic stress disorder, unspecified; F32.A Depression, unspecified; R93.0 Abnormal findings on diagnostic imaging of skull and head, not elsewhere classified; M19.90 Unspecified osteoarthritis, unspecified site; Z85.46 Personal history of malignant neoplasm of prostate; Z85.820 Personal history of malignant melanoma of skin; Z86.73 Personal history of transient ischemic attack (TIA), and cerebral infarction without residual deficits; Z87.891 Personal history of nicotine dependence; Z79.899 Other long term (current) drug therapy; Z88.5 Allergy status to narcotic agent
CPT/HCPCS: 96376 ×2; 96374; 96361; 99285; 36415; 95816; 93005; 93306; 93270; 85379; 80061; 80053 ×2; 80048; 83735; 84484; 85025 ×3; 85610; 85730; 83036; 71046; 93880; 70450; G0378 ×3; Q9957; J1885 ×3

== ENCOUNTER 2024-06-18 07:01 | Day surgery (SDC) | payer OTHER ==
[2024-06-18] MEDS: SODIUM CHLORIDE 0.9% 1,000 ML IV SCH (07:33)
[2024-06-18] MEDS: IV FLUID CONTINUATION 1,000 ML IV ONE (07:36)
[2024-06-18 07:42] VITALS: RESP 16; TEMP 98.8
[2024-06-18 09:42] VITALS: BP 134/76; PULSE 73
--- NOTE | 2024-06-22 14:46 | P.EPPROC ---
- EP Procedure Note Electrophysiology Procedure Note: Diagnosis Recurrent syncope Twelve-lead EKG shows sinus rhythm normal MD narrow QRS normal ST segments Tilt table test per protocol Baseline blood pressure 145/67 mmHg, baseline heart rate 65 beats a minute Patient was tilted upright in angle of 70 degrees per protocol No change in heart rate Steady increase in blood pressure He reported nausea shaking of the knees diaphoresis Impression Normal twelve-lead EKG No evidence for dysautonomia or neurocardiogenic syncope Patient described a variety of symptoms such as headache shaking of the knees, nausea diaphoresis but without any signal change in heart rate. With CLEARSITE (NI BP monitoring), blood pressure remained normal
== END 2024-06-18 09:45 | disposition home or self-care (01) ==
LOC: CATHEP 07:01
PROVIDERS: ATTEND Internal Medicine Clinical Cardiac Electrophysiology
DX: R55 Syncope and collapse
CPT/HCPCS: 93660

== ENCOUNTER → 2024-08-31 | Outpatient (CLI) | payer OTHER ==
--- NOTE | 2024-08-31 08:28 | MM ---
Reason for Exam: Clinical finding. Indicated Problems: Lump or thickening of the left side for 4 Month(s). Patient History: Other cancer at or over age 50. Sister had breast cancer at or over age 50. Mother had breast cancer at or over age 50. Tissue Density: The breasts are almost entirely fatty. Findings: Analyzed By CAD. Retroareolar density seen on the left felt to reflect gynecomastia. This can be confirmed with ultrasound. No right-sided gynecomastia or masses are seen. Overall Assessment: Incomplete: need additional imaging evaluation, BI-RAD 0 Management: Diagnostic Breast Ultrasound of the left breast. . Results were given to the patient verbally at the time of exam. Patient should continue monthly self-breast exams. A clinical breast exam by your physician is recommended on an annual basis. This exam should not preclude additional follow-up of suspicious palpable abnormalities. Note on Phyllis scores and lifetime risk: 1. A Phyllis score greater than 3% is considered moderate risk. If this is the case, consider specialist referral to assess eligibility for a risk reducing agent. 2. If overall lifetime risk for the development of breast cancer is 20% or higher, the patient may qualify for future screening with alternating mammogram and breast MRI. [facility], , 08/31/2024 8:25 AM. Electronically signed and approved by: Pablito Iyer M.D. Radiologis
--- NOTE | 2024-08-31 13:52 | USB ---
Reason for Exam: Clinical finding. Patient History: Other cancer at or over age 50. Sister had breast cancer at or over age 50. Mother had breast cancer at or over age 50. Technique: Method: Targeted. Findings: The axilla of the left breast and the retroareolar of both breasts were scanned. A complete US of all four quadrants of the breast and retro-areolar region were reviewed. There is evidence of left-sided retroareolar gynecomastia without right-sided counterpart. Overall Assessment: Benign, BI-RAD 2 Management: Clinical Management of the left breast. Electronically signed and approved by: Pablito Iyer M.D. Radiologis
== END | disposition home or self-care (01) ==
LOC: RADMAMWWP 07:43
PROVIDERS: ATTEND Family Medicine
DX: N63.20 Unspecified lump in the left breast, unspecified quadrant (principal); Z80.3 Family history of malignant neoplasm of breast; R92.313 Mammographic fatty tissue density, bilateral breasts
CPT/HCPCS: 77062; 77066